=== PATIENT | female | born 1940 | race African-American/Black ===

== ENCOUNTER 2019-05-03 15:28 | Inpatient (IN) ==
--- NOTE | 2019-05-03 15:55 | DR.GENAD ---
HPI Time Seen Time Seen by Provider: 05/03/19 15:55 PCP Primary Care Physician: DR. DAMON Complaint/Symptoms Chief Complaint:: DAUGHTER STATES THAT PATIENT HAS ALZHEIMERS AND SOMTIMES DOESN'T EAT WELL BUT NORMALLY DRINKS PRETTY GOOD. STATES TODAY PATIENT HASN'T ATE NOR HAS SHE REALLY DRUNK ANYTHING. Source History Provided: Family Member Mode of Arrival Mode of Arrival: EMS Timing Onset of Chief Complaint: 05/03/19 PMH PMH Past Medical History: Yes Past Medical History: Alzheimers, Dementia, Diabetes, Dyslipidemia, Hypertension and [place] Past Medical History Comment: UPPER GI BLEED Past Surgical History: Yes Surgical History: Angioplasty/Stents Family History History of Family Medical Conditions: Yes Family Medical History: Diabetes Mellitus and Hypertension Social History Does any household member use tobacco: No Alcohol Use: None Do you use any recreational Drugs:: No Lives With: Family Lives Where: Home infectious screening In the last 2 months have you had wt loss of >10#?: NO Have you had fever, night sweats or hemotysis?: No Have you traveled outside the country in the last 6 months?: No Isolation: Standard PE Vital Signs Vitals: Temperature 98.0 F Pulse Rate 76 Respiratory Rate 16 Blood Pressure [Left Arm] 174/86 Blood Pressure 114/61 O2 Sat by Pulse Oximetry 100 ROR Labs Reviewed Result Diagrams: 05/03/19 17:30 05/03/19 17:30 Laboratory: 05/03/19 16:43 Foot - Right Gram Stain - Final WBC 11.8 X10^3/uL (3.6-10.0) H 05/03/19 17:30 RBC 4.03 X10^6/uL (3.5-5.4) 05/03/19 17:30 Hgb 11.2 g/dL (12.0-16.0) L 05/03/19 17:30 Hct 35.6 % (36.0-47.0) L 05/03/19 17:30 MCV 88.2 fL (80.0-100.0) 05/03/19 17:30 MCH 27.8 pg (27.0-34.0) 05/03/19 17:30 MCHC 31.5 g/dL (33.0-35.0) L 05/03/19 17:30 RDW 15.1 % (11.6-16.5) 05/03/19 17:30 Plt Count 254 X10^3/uL (150.0-450.0) 05/03/19 17:30 MPV 10.4 fL (7.4-11.0) 05/03/19 17:30 Neut % (Auto) 84.8 % (42.0-75.0) H 05/03/19 17:30 Lymph % (Auto) 8.7 % (21.0-51.0) L 05/03/19 17:30 [place] % (Auto) 6.0 % (0.0-13.0) 05/03/19 17:30 Eos % (Auto) 0.2 % (0.9-2.9) L 05/03/19 17:30 Baso % (Auto) 0.3 % (0.2-1.0) 05/03/19 17:30 Neut # (Auto) 10.0 x10^3/uL (2.2-4.8) H 05/03/19 17:30 Lymph # (Auto) 1.0 X10^3/uL (1.3-2.9) L 05/03/19 17:30 [place] # (Auto) 0.7 x10^3/uL (0.3-0.8) 05/03/19 17:30 Eos # (Auto) 0.0 x10^3/uL (0.0-0.2) 05/03/19 17:30 Baso # (Auto) 0.0 X10^3/uL (0.0-0.1) 05/03/19 17:30 Absolute Nucleated RBC 0.0 /100WBC 05/03/19 17:30 ESR 107 MM/HOUR (0-20) H 05/03/19 17:30 Sodium 151 mmol/L (136-145) H* 05/03/19 17:30 Corrected Sodium 154 mmol/L (136-145) H 05/03/19 17:30 Potassium 5.6 mmol/L (3.5-5.1) H 05/03/19 17:30 Chloride 112 mmol/L (98-107) H 05/03/19 17:30 Carbon Dioxide 29.8 mmol/L (21-32) 05/03/19 17:30 BUN 146 mg/dL (7-18) H 05/03/19 17:30 Creatinine 3.86 mg/dL (0.55-1.02) H 05/03/19 17:30 Est GFR (MDRD) Af Amer 15 (>60) L 05/03/19 17:30 Est GFR (MDRD) Non-Af 12 (>60) L 05/03/19 17:30 Glucose 232 mg/dL (65-99) H 05/03/19 17:30 Lactic Acid 2.1 mmol/L (0.4-2.0) H 05/03/19 17:30 Calcium 9.2 mg/dL (8.5-10.1) 05/03/19 17:30 Corrected Calcium 10.2 mg/dL (8.5-10.1) H 05/03/19 17:30 Total Bilirubin 0.30 mg/dL (0.2-1.0) 05/03/19 17:30 AST 92 Units/L (15-37) H 05/03/19 17:30 ALT 153 Units/L (12-78) H 05/03/19 17:30 Alkaline Phosphatase 78 Units/L (46-116) 05/03/19 17:30 Ammonia < 10 umol/L (11-32) L 05/03/19 17:30 Creatine Kinase 250 Units/L (26-192) H 05/03/19 17:30 CK-MB (CK-2) 1.0 ng/mL (0-4.0) 05/03/19 17:30 CK/CKMB % Calc 0.4 % (<4) 05/03/19 17:30 Troponin I < 0.02 ng/mL (0-1.5) 05/03/19 17:30 C-Reactive Protein 63.20 mg/L (0-3.0) H 05/03/19 17:30 Total Protein 8.7 g/dL (6.4-8.2) H 05/03/19 17:30 Albumin 2.8 g/dL (3.4-5.0) L 05/03/19 17:30 Globulin 5.9 g/dL (2.5-4.5) H 05/03/19 17:30 Albumin/Globulin Ratio 0.5 Ratio (1.1-2.1) L 05/03/19 17:30 Specimen Type Catherized urine 05/03/19 18:07 Urine Color Yellow (YELLOW) 05/03/19 18:07 Urine Appearance Cloudy (CLEAR) 05/03/19 18:07 Urine pH 5.0 (5.0 - 8.0) 05/03/19 18:07 Ur Specific [place] 1.020 (1.000-1.030) 05/03/19 18:07 Urine Protein 2+ (NEGATIVE) 05/03/19 18:07 Urine Glucose (UA) Negative (NEGATIVE) 05/03/19 18:07 Urine Ketones Negative (NEGATIVE) 05/03/19 18:07 Urine Occult Blood 1+ (NEGATIVE) 05/03/19 18:07 Urine Nitrite Negative (NEGATIVE) 05/03/19 18:07 Urine Bilirubin Negative (NEGATIVE) 05/03/19 18:07 Urine Urobilinogen Normal (NORMAL) 05/03/19 18:07 Ur Leukocyte Esterase Negative (NEGATIVE) 05/03/19 18:07 Urine RBC 0-2 /HPF (0-3) 05/03/19 18:07 Urine WBC None seen /HPF (0-5) 05/03/19 18:07 Ur Squamous Epith Cells Few /HPF (NEGATIVE) 05/03/19 18:07 Amorphous Sediment 2+ /HPF (NEGATIVE) 05/03/19 18:07 Urine Bacteria Negative /HPF (NEGATIVE) 05/03/19 18:07 Granular Casts Few /LPF (NEGATIVE) 05/03/19 18:07 Ur Culture Indicated? No/not indicated 05/03/19 18:07 Opioid Opioid Risk Tool Age (Jermaine box if 16-45): No History of Preadolescent Sexual Abuse: No Total: 0 Total Score Risk Category: Low Risk Copyright: Balta FREED predicting aberrant behaviors
--- NOTE | 2019-05-03 17:34 | CT ---
HISTORY: Altered mental status, dementia Study: CT brain without contrast Comparison: None Technique: Multiple axial images of the brain were obtained from the skull base to the vertex without administration of IV contrast. Findings: No acute intraparenchymal hemorrhage or mass can be identified. No extra-axial fluid collections are seen. No alteration in the attenuation of the brain parenchyma can be identified to suggest acute or subacute ischemic change. The ventricles, sulci, and cisterns demonstrate an appearance consistent with a [id number] degree of generalized atrophy. Patchy and confluent areas of decreased attenuation within the periventricular, subcortical, and subinsular white matter suggest changes of chronic small vessel ischemic disease. Suspected remote infarcts are seen involving the left parietal and occipital lobes. If symptoms or clinical concern persist recommend continued follow-up for further evaluation. IMPRESSION: No acute intracranial process can be identified. Moderate generalized atrophy with findings consistent with changes of chronic small vessel ischemic disease. Suspected remote infarcts as noted above. Reported By:
[2019-05-03 17:40] LABS: BASOPHILS % (AUTO) 0.3 % (0.2-1.0); EOSINOPHILS % (AUTO) 0.2 % (0.9-2.9); HEMATOCRIT 35.6 % (36.0-47.0); HEMOGLOBIN 11.2 g/dL (12.0-16.0); LYMPHOCYTES % (AUTO) 8.7 % (21.0-51.0); MEAN CORPUSCULAR HEMOGLOBIN 27.8 pg (27.0-34.0); MEAN CORPUSCULAR HGB CONC 31.5 g/dL (33.0-35.0); MEAN CORPUSCULAR VOLUME 88.2 fL (80.0-100.0); MEAN PLATELET VOLUME 10.4 fL (7.4-11.0); MONOCYTES # (AUTO) 0.7 x10^3/uL (0.3-0.8); NEUTROPHILS % (AUTO) 84.8 % (42.0-75.0); PLATELET COUNT 254 X10^3/uL (150.0-450.0); RED BLOOD COUNT 4.03 X10^6/uL (3.5-5.4); RED CELL DISTRIBUTION WIDTH 15.1 % (11.6-16.5); WHITE BLOOD COUNT 11.8 X10^3/uL (3.6-10.0)
--- NOTE | 2019-05-03 17:45 | RAD ---
HISTORY: Altered mental status Study: Single-view of the chest Comparison: None Findings: The trachea is midline. The cardiac silhouette is unremarkable. The lungs are relatively without focal infiltrate or effusion. IMPRESSION: 1. No acute cardiopulmonary disease. Reported By:
[2019-05-03 17:50] LABS: AMMONIA < 10 umol/L (11-32)
[2019-05-03 17:57] LABS: LACTIC ACID 2.1 mmol/L (0.4-2.0)
[2019-05-03 18:03] LABS: ALANINE AMINOTRANSFERASE 153 Units/L (12-78); ALBUMIN 2.8 g/dL (3.4-5.0); ALKALINE PHOSPHATASE 78 Units/L (46-116); ASPARTATE AMINO TRANSFERASE 92 Units/L (15-37); BLOOD UREA NITROGEN 146 mg/dL (7-18); CALCIUM 9.2 mg/dL (8.5-10.1); CARBON DIOXIDE 29.8 mmol/L (21-32); CHLORIDE 112 mmol/L (98-107); CKMB % 0.4 % (<4); COR CA(FOR HYPOALB) 10.2 mg/dL (8.5-10.1); COR NA(FOR HYPERGLY) 154 mmol/L (136-145); CREATINE KINASE 250 Units/L (26-192); CREATININE 3.86 mg/dL (0.55-1.02); TOTAL PROTEIN 8.7 g/dL (6.4-8.2); TROPONIN I < 0.02 ng/mL (0-1.5); eGFR NON BLACK RACES 12 (>60)
[2019-05-03 18:04] LABS: SODIUM 151 mmol/L (136-145)
[2019-05-03 18:20] LABS: ERYTHROCYTE SEDIMENTATION RATE 107 MM/HOUR (0-20)
[2019-05-03 18:35] LABS: BILIRUBIN,URINE NEGATIVE (NEGATIVE); BLOOD/HEMOGLOBIN,URINE 1+ (NEGATIVE); GLUCOSE, URINE NEGATIVE (NEGATIVE); KETONES,URINE NEGATIVE (NEGATIVE); LEUKOCYTE ESTERASE ,URINE NEGATIVE (NEGATIVE); NITRITES,URINE NEGATIVE (NEGATIVE); PROTEIN,URINE 2+ (NEGATIVE); UROBILINOGEN,URINE NORMAL (NORMAL)
[2019-05-03 18:38] LABS: APPEARANCE,URINE CLOUDY (CLEAR); COLOR,URINE YELLOW (YELLOW); RBC,URINE 0-2 /HPF (0-3); SQUAMOUS EPITHELIAL CELL,UR FEW /HPF (NEGATIVE)
[2019-05-03 18:39] LABS: AMORPHOUS SEDIMENT,UR 2+ /HPF (NEGATIVE); BACTERIA,URINE NEGATIVE /HPF (NEGATIVE); GRANULAR CASTS,URINE FEW /LPF (NEGATIVE)
[2019-05-03] MEDS ORDERED: NS 1/2 1000 ML IV 1,000 ML IV ONE (19:32)
[2019-05-03] MEDS: ROCEPHIN VIAL 1 GRAM 1 G in NS 100 ML IV + SPIKE MINIBAG* 100 ML IV SCH (19:32)
[2019-05-03] MEDS: NS 1/2 1000 ML IV 1,000 ML IV SCH (19:32)
[2019-05-03] MEDS ORDERED: ROCEPHIN VIAL 1 GRAM ONE (19:33)
[2019-05-03] MEDS ORDERED: NS 100 ML IV + SPIKE MINIBAG* 100 ML IV ONE (19:34)
--- NOTE | 2019-05-03 19:47 | RAD ---
Abdomen, one view Indication: Abdominal pain Comparison: None Findings: The visualized bowel gas pattern is nonspecific but nonobstructive. No free air or pneumatosis is identified. No pathologic calcifications seen. Imaged osseous structures are grossly intact. Impression: Nonspecific but nonobstructive bowel gas pattern. Reported By:
--- NOTE | 2019-05-03 19:51 | RAD ---
Right foot, three views Indication: Ulcer, gangrene Comparison: None Findings: There appears to be an ulcer of the distal 3rd digit with underlying osteolysis of the distal tuft, compatible with osteomyelitis. There is no significant soft tissue gas or radiopaque foreign body. No acute fracture or malalignment is identified. Degenerative changes of the midfoot, 1st MTP joint and mild hindfoot enthesopathy noted. Impression: Ulceration of the distal 3rd digit with underlying osteolysis of the 3rd digit distal tuft, compatible with osteomyelitis. Consider contrast enhanced MRI of the forefoot only for further evaluation. This can be done on a nonemergent basis. Reported By:
[2019-05-03 23:57] LABS: CKMB % 0.8 % (<4); CREATINE KINASE 212 Units/L (26-192); CREATINE KINASE MB 1.6 ng/mL (0-4.0); TROPONIN I < 0.02 ng/mL (0-1.5)
[2019-05-04 00:18] VITALS: BMI 16.1
[2019-05-04 05:18] LABS: BASOPHILS % (AUTO) 0.3 % (0.2-1.0); EOSINOPHILS % (AUTO) 0.4 % (0.9-2.9); HEMATOCRIT 27.2 % (36.0-47.0); LYMPHOCYTES # (AUTO) 1.7 X10^3/uL (1.3-2.9); LYMPHOCYTES % (AUTO) 15.3 % (21.0-51.0); MEAN CORPUSCULAR HEMOGLOBIN 28.5 pg (27.0-34.0); MEAN CORPUSCULAR HGB CONC 32.6 g/dL (33.0-35.0); MEAN CORPUSCULAR VOLUME 87.4 fL (80.0-100.0); MEAN PLATELET VOLUME 10.5 fL (7.4-11.0); MONOCYTES # (AUTO) 0.8 x10^3/uL (0.3-0.8); MONOCYTES % (AUTO) 7.8 % (0.0-13.0); NEUTROPHILS # (AUTO) 8.2 x10^3/uL (2.2-4.8); NEUTROPHILS % (AUTO) 76.2 % (42.0-75.0); PLATELET COUNT 204 X10^3/uL (150.0-450.0); RED BLOOD COUNT 3.11 X10^6/uL (3.5-5.4); RED CELL DISTRIBUTION WIDTH 14.3 % (11.6-16.5); WHITE BLOOD COUNT 10.8 X10^3/uL (3.6-10.0)
[2019-05-04 05:19] LABS: HEMOGLOBIN 8.9 g/dL (12.0-16.0)
[2019-05-04 05:43] LABS: ALANINE AMINOTRANSFERASE 106 Units/L (12-78); ALBUMIN 2.3 g/dL (3.4-5.0); ALKALINE PHOSPHATASE 62 Units/L (46-116); ASPARTATE AMINO TRANSFERASE 53 Units/L (15-37); BLOOD UREA NITROGEN 143 mg/dL (7-18); CALCIUM 8.4 mg/dL (8.5-10.1); CARBON DIOXIDE 28.8 mmol/L (21-32); CHOL/HDL RATIO 5.5 (0.0-5.0); CHOLESTEROL 149 mg/dL (0-200); CKMB % 0.6 % (<4); COR CA(FOR HYPOALB) 9.8 mg/dL (8.5-10.1); COR NA(FOR HYPERGLY) 153 mmol/L (136-145); CREATINE KINASE 193 Units/L (26-192); CREATINE KINASE MB 1.2 ng/mL (0-4.0); CREATININE 3.36 mg/dL (0.55-1.02); HDL CHOLESTEROL 27 mg/dL (40-60); MAGNESIUM 3.3 mg/dL (1.7-2.9); TOTAL PROTEIN 7.1 g/dL (6.4-8.2); TRIGLYCERIDES 171 mg/dL (0-150); TROPONIN I < 0.02 ng/mL (0-1.5); eGFR NON BLACK RACES 14 (>60)
[2019-05-04 05:46] LABS: CHLORIDE 115 mmol/L (98-107); SODIUM 152 mmol/L (136-145)
[2019-05-04] MEDS ORDERED: NS 1/2 1000 ML IV 1,000 ML IV ONE ×2 (05:48→21:03)
[2019-05-04] MEDS: NS 1/2 1000 ML IV 1,000 ML IV SCH ×5 (06:02→21:14)
[2019-05-04] MEDS: ROCEPHIN VIAL 1 GRAM 1 G in NS 100 ML IV + SPIKE MINIBAG* 100 ML IV SCH (09:05)
[2019-05-04] MEDS ORDERED: VANCOMYCIN HCL 750 MG in NS 250 ML IV 250 ML IV NR (10:00)
[2019-05-04] MEDS ORDERED: PHARMACY CONSULT - VANCOMYCIN XX SCH (10:00)
[2019-05-04] MEDS ORDERED: NS IRRIGATION 500 ML IR ONE (10:07)
--- NOTE | 2019-05-04 11:06 | DR.H&P ---
H&P - History & Physical for Day of: H&P Date: 05/03/19 - Chief Complaint Chief Complaint: DECREASED APPETITE, RIGHT FOOT WOUND - History of Present Illness History of Present Illness: IS A 78 YEAR OLD PATIENT OF OURS. SHE PRESENTED TO THE ER VIA EMS WITH FAMILY REPORTING DECREASED APPETITE AND A RIGHT FOOT WOUND. UNSTAGEABLE WOUND NOTED TO THE RIGHT OUTER ANKLE. WOUND IS APPROXIMATELY THE SIZE OF A QUARTER. SLOUGH COVERING WOUND BED. PATIENT MOANS OUT IN PAIN WITH MOVEMENT OF HER RIGHT FOOT OR LEG. SHE HAS A HISTORY OF ANZEIMERS, DENENTIA, DM, DYSLIPIDEMIA, HTN, AND NH. ON ARRIVAL TO THE ER, VITALS WERE 98.0-80-20-99%-131/62. LABS WERE OBTAINED. ABNORMAL LAB VALUES INCLUDE THE FOLLOWING: WBC 11.8, HGB 11.2, HCT 35.6, SODIUM 151, POTASSIUM 5.6, CHLORIDE 112, BUN 146, CREATININE 3.86, GLUCOSE 232, LACTIC ACID 2.1, AST 92, ALT 153, CRP 63.20, TOTAL PROTEIN 8.7, ALBUMIN 2.8, GLOBULIN 5.9. CREATINE KINASE 250, CARDIAC ENZYMES ARE OTHERWISE UNREMARKABLE. URINALYSIS IS UNREMARKABLE. AN EKG WAS OBTAINED AND REVEALED: SINUS RHYTH WITH MULTIPLE PVC, HR 81. A BRAIN CT WAS OBTAINED AND REVEALED: No acute intracranial process can be identified. Moderate generalized atrophy with findings consistent with changes of chronic small vessel ischemic disease. Suspected remote infarcts as noted above. A RIGHT FOOT XRAY REVEALED: Ulceration of the distal 3rd digit with underlying osteolysis of the 3rd digit distal tuft, compatible with osteomyelitis. Consider contrast enhanced MRI of the forefoot only for further evaluation. This can be done on a nonemergent basis. CHEST XRAY REVEALED: NO ACUTE CARDIOPULMONARY DISEASE. KUB REVEALED: Nonspecific but nonobstructive bowel gas pattern. SHE WAS ADMITTED FOR FURTHER EVALUATION AND TREATMENT OF ACUTE RENAL FAILURE, SEVERE DEHYDRATION, HYPERNATREMIA, HYPERKALEMIA, AND OSTEOMYELITIS OF THE RIGHT FOOT. SHE WAS STARTED ON 1/2NS AT 125ML/HR, ROCEPHIN 1G IV DAILY, AND HUMULIN R SLIDING SCALE. WE SPOKE WITH CONCERNING THE OSTEOMYELITIS. HE WILL SEE PATIENT IN THE MORNING. OTHERWISE, WE WILL FOLLOW UP WITH AM LABS AND CONTINUE TO MONITOR. - Past Medical History Past Medical History: NH, Hypertension, Dyslipidemia, Diabetes, Alzheimers, Dementia - Past Surgical History Surgical History: Angioplasty/Stents - Family History Family Medical History: Diabetes Mellitus, Coronary Artery Disease, Hypertension - Social History Does patient currently use any type of tobacco product: No Have you used tobacco products in the last 12 months: No Does any household member use tobacco: No Alcohol Use: None Drug Use: None - Medications Home Medications: latex Allergy (Verified 05/03/19 15:50) CONTINUE taking the following medications insulin glargine [Lantus U-100 Insulin] 10 unit SUBCUT DAILY PRN 05/03/19 [History] lisinopril-hydrochlorothiazide 1 tab PO DAILY 05/03/19 [History] simvastatin 20 mg PO QHS 05/03/19 [History] - Review of Systems Constitutional: See HPI, Weakness Eyes: No Symptoms Reported ENT: No Symptoms Reported Respiratory: No Symptoms Reported Cardiovascular: No Symptoms Reported Gastrointestinal: No Symptoms Reported Genitourinary: No Symptoms Reported Musculoskeletal: See HPI, Foot Pain (RIGHT FOOT PAIN ) Skin: Wound (UNSTAGABLE RIGHT FOOT WOUND ) Neurological: See HPI, Weakness - Physical Exam Vital Signs: Temperature 97.0 F Pulse Rate 56 Respiratory Rate 14 Blood Pressure [Left Arm] 144/65 Blood Pressure 116/60 O2 Sat by Pulse Oximetry 100 Oriented: Unable to test Eyes: Normal Ear: Normal Nose: Normal Throat: Normal Respiratory: Diminished Throughout Cardiovascular: Normal. negative: S3, S4, Murmur : Normal Auscultation: Bowel Sounds: Normal Palpation: Normal Tenderness: Normal Skin: Wound (RIGHT FOOT WOUND ) Musculoskeletal: Right, Foot, Tender Psychiatric: Other Mood Description: Calm, Flat Affect: Flat Speech Pattern: Inappropriate - Review Patient was examined?: Yes - Allergies Allergies/Adverse Reactions: Allergies Allergy/AdvReac Type Severity Reaction Status Date / Time latex Allergy Verified 05/03/19 15:50
[2019-05-04] MEDS: HumuLIN R SUBCUT PRN ×3 (12:15→20:29)
[2019-05-04] MEDS ORDERED: NS 1000 ML 2,000 ML IV ONE (14:18)
[2019-05-04] MEDS: LOVENOX INJ 40 MG SYR SC SCH (14:43)
[2019-05-05] MEDS: NS 1/2 1000 ML IV 1,000 ML IV SCH ×4 (04:41→20:50)
[2019-05-05] MEDS ORDERED: NS 1/2 1000 ML IV 1,000 ML IV ONE ×2 (05:22→16:41)
[2019-05-05 05:24] LABS: BASOPHILS % (AUTO) 0.4 % (0.2-1.0); EOSINOPHILS # (AUTO) 0.3 x10^3/uL (0.0-0.2); EOSINOPHILS % (AUTO) 2.5 % (0.9-2.9); HEMOGLOBIN 8.3 g/dL (12.0-16.0); LYMPHOCYTES # (AUTO) 1.6 X10^3/uL (1.3-2.9); LYMPHOCYTES % (AUTO) 13.9 % (21.0-51.0); MEAN CORPUSCULAR VOLUME 87.7 fL (80.0-100.0); MEAN PLATELET VOLUME 10.9 fL (7.4-11.0); MONOCYTES # (AUTO) 0.8 x10^3/uL (0.3-0.8); MONOCYTES % (AUTO) 6.6 % (0.0-13.0); NEUTROPHILS # (AUTO) 8.9 x10^3/uL (2.2-4.8); NEUTROPHILS % (AUTO) 76.6 % (42.0-75.0); PLATELET COUNT 171 X10^3/uL (150.0-450.0); RED BLOOD COUNT 2.96 X10^6/uL (3.5-5.4); RED CELL DISTRIBUTION WIDTH 14.5 % (11.6-16.5); WHITE BLOOD COUNT 11.6 X10^3/uL (3.6-10.0)
[2019-05-05 05:46] LABS: ALANINE AMINOTRANSFERASE 102 Units/L (12-78); ALBUMIN 1.8 g/dL (3.4-5.0); ALKALINE PHOSPHATASE 57 Units/L (46-116); ASPARTATE AMINO TRANSFERASE 70 Units/L (15-37); BLOOD UREA NITROGEN 98 mg/dL (7-18); CALCIUM 7.6 mg/dL (8.5-10.1); CARBON DIOXIDE 24.5 mmol/L (21-32); COR CA(FOR HYPOALB) 9.4 mg/dL (8.5-10.1); CREATININE 1.96 mg/dL (0.55-1.02); SODIUM 148 mmol/L (136-145); TOTAL PROTEIN 5.8 g/dL (6.4-8.2); eGFR NON BLACK RACES 26 (>60)
[2019-05-05 05:55] LABS: CHLORIDE 115 mmol/L (98-107)
[2019-05-05] MEDS ORDERED: PHARMACY COMMENT IV NR (08:00)
[2019-05-05] MEDS: LOVENOX INJ 40 MG SYR SC SCH (08:10)
[2019-05-05] MEDS: ROCEPHIN VIAL 1 GRAM 1 G in NS 100 ML IV + SPIKE MINIBAG* 100 ML IV SCH (08:10)
[2019-05-05 08:48] LABS: VANCOMYCIN,TROUGH 7.7 ug/mL (15-20)
[2019-05-05] MEDS: VANCOMYCIN HCL 750 MG in D5W 250 ML IV 250 ML IV SCH ×2 (11:58→20:47)
--- NOTE | 2019-05-05 17:28 | PCM.PROG ---
Progress Note - Progress Note for Day of Date of Exam: 05/04/19 - Subjective Subjective: WAS ADMITTED FOR TREATMENT OF ACUTE RENAL FAILURE, SEVERE DEHYDRATION, HYPERNATREMIA, HYPERKALEMIA, AND OSTEOMYELITIS OF THE RIGHT FOOT. TODAY, SHE IS LYING IN BED WITH EYES CLOSED ON MORNING ROUNDS. SHE OPENS EYES TO VERBAL STIMULI, BUT DOES NOT VERBALLY RESPOND. ON EXAMINATION, HEART IS REGULAR IN RATE AND RHYTHM. BILATERAL LUNGS ARE NOTED WITH DIMINISHED LUNG SOUNDS THROUGHOUT. ABDOMEN IS FLAT, SOFT, AND NON-TENDER. HYPOACTIVE BOWEL SOUNDS ARE NOTED. LOWER EXTREMITIES ARE CONTRACTED. THERE IS AN UNSTAGEABLE WOUND NOTED TO THE RIGHT OUTER ANKLE. WOUND IS APPROXIMATELY THE SIZE OF A QUARTER. SLOUGH COVERING WOUND BED. THE 3RD TO IS ISCHEMIC. DISTAL PEDAL PULSES ARE NOTE PA LPABLE. HER VITALS THIS MORNING ARE: 97.2-63-15-100%-118/58. LABS WERE OBTAINED. ABNORMAL LAB VALUES INCLUDE THE FOLLOWING: WBC 10.8, RBC 3.11, HGB 8.9, HCT 27.2, SODIUM 152, CHLORIDE 115, BUN 143, CREATININE 3.36, GLUCOSE 151, CALCIUM 8.4, MAGNESIUM 3.3, ALT 106, CREATINE KINASE 193, ALBUMIN 2.3. WOUND AND BLOOD CULTURES ARE PENDING. SHE IS CURRENTLY RECEIVING 1/2NS AT 125ML/HR, IV CIPRO, AND HUMULIN R SLIDING SCALE. WE WILL ADD VANCOMYCIN TODAY. WE WILL OBTAIN AN ECHO, BNP, STOOL FOR OCCULT BLOOD. WE SPOKE WITH . HE DOES NOT FEEL THOUGH THE WOUND REQUIRES SURGICAL INTERVENTION AT THIS TIME. HE RECOMMENDS CONTINUING ANTIBIOTICS AND WOUND CARE. WE ARE IN AGREEMENT WITH PLAN. OTHERWISE, WE WILL FOLLOW UP WITH AM LABS AND CONTINUE TO MONITOR. - Past Medical Family Social History Past Med/Fam/Surg Hx: No changes since H&P Allergies: Allergies latex Allergy (Verified 05/03/19 15:50) - Review of Systems ROS: No change since H&P - Vital Signs and I&O's Vital Signs: Temperature 98.0 F Pulse Rate 64 Respiratory Rate 16 Blood Pressure [Left Arm] 144/65 Blood Pressure 166/80 O2 Sat by Pulse Oximetry 100 Intake and Output: Intake & Output 05/03/19 05/04/19 05/05/19 05/06/19 11:59 11:59 11:59 11:59 Intake Total 1179 / 1179 6938 / 6938 Output Total 200 / 200 1300 / 1300 Balance 979 / 979 5638 / 5638 - Physical Exam Oriented: Unable to test Eyes: Normal Ear: Normal Nose: Normal Throat: Normal Cardiovascular: Normal. negative: S3, S4, Murmur : Normal Auscultation: Bowel Sounds: Normal Tenderness: Normal Skin: Wound (RIGHT FOOT WOUND ) Musculoskeletal: Right, Foot, Tender Psychiatric: Other Mood Description: Calm, Flat Affect: Flat Speech Pattern: Unclear, Aphasic - Laboratory and Diagnostics Result Diagrams: 05/05/19 04:35 05/05/19 08:16 Labs: 05/03/19 17:25 Blood Blood Culture - Preliminary 05/03/19 17:30 Blood Blood Culture - Preliminary 05/03/19 20:00 Ankle - Right Gram Stain - Final 05/03/19 20:00 Ankle - Right Wound Culture - Preliminary Enterococcus Faecalis 05/03/19 16:43 Foot - Right Gram Stain - Final 05/03/19 16:43 Foot - Right Wound Culture - Preliminary Enterococcus Faecalis Laboratory WBC 11.6 X10^3/uL (3.6-10.0) H 05/05/19 04:35 RBC 2.96 X10^6/uL (3.5-5.4) L 05/05/19 04:35 Hgb 8.3 g/dL (12.0-16.0) L 05/05/19 04:35 Hct 26.0 % (36.0-47.0) L 05/05/19 04:35 MCV 87.7 fL (80.0-100.0) 05/05/19 04:35 MCH 28.0 pg (27.0-34.0) 05/05/19 04:35 MCHC 32.0 g/dL (33.0-35.0) L 05/05/19 04:35 RDW 14.5 % (11.6-16.5) 05/05/19 04:35 Plt Count 171 X10^3/uL (150.0-450.0) 05/05/19 04:35 MPV 10.9 fL (7.4-11.0) 05/05/19 04:35 Neut % (Auto) 76.6 % (42.0-75.0) H 05/05/19 04:35 Lymph % (Auto) 13.9 % (21.0-51.0) L 05/05/19 04:35 [place] % (Auto) 6.6 % (0.0-13.0) 05/05/19 04:35 Eos % (Auto) 2.5 % (0.9-2.9) 05/05/19 04:35 Baso % (Auto) 0.4 % (0.2-1.0) 05/05/19 04:35 Neut # (Auto) 8.9 x10^3/uL (2.2-4.8) H 05/05/19 04:35 Lymph # (Auto) 1.6 X10^3/uL (1.3-2.9) 05/05/19 04:35 [place] # (Auto) 0.8 x10^3/uL (0.3-0.8) 05/05/19 04:35 Eos # (Auto) 0.3 x10^3/uL (0.0-0.2) H 05/05/19 04:35 Baso # (Auto) 0.0 X10^3/uL (0.0-0.1) 05/05/19 04:35 Absolute Nucleated RBC 0.0 /100WBC 05/05/19 04:35 ESR 107 MM/HOUR (0-20) H 05/03/19 17:30 Sodium 148 mmol/L (136-145) H 05/05/19 04:35 Corrected Sodium TNP 05/05/19 04:35 Potassium 4.4 mmol/L (3.5-5.1) 05/05/19 04:35 Chloride 115 mmol/L (98-107) H* 05/05/19 04:35 Carbon Dioxide 24.5 mmol/L (21-32) 05/05/19 04:35 BUN 98 mg/dL (7-18) H 05/05/19 04:35 Creatinine 2.00 mg/dL (0.55-1.02) H 05/05/19 08:16 Est GFR (MDRD) Af Amer 32 (>60) L 05/05/19 04:35 Est GFR (MDRD) Non-Af 26 (>60) L 05/05/19 04:35 Glucose 105 mg/dL (65-99) H 05/05/19 04:35 POC Glucose (mg/dL) 137 mg/dL (65-99) H 05/05/19 12:03 Lactic Acid 2.1 mmol/L (0.4-2.0) H 05/03/19 17:30 Calcium 7.6 mg/dL (8.5-10.1) L 05/05/19 04:35 Corrected Calcium 9.4 mg/dL (8.5-10.1) 05/05/19 04:35 Magnesium 3.3 mg/dL (1.7-2.9) H 05/04/19 05:03 Total Bilirubin 0.10 mg/dL (0.2-1.0) L 05/05/19 04:35 AST 70 Units/L (15-37) H 05/05/19 04:35 ALT 102 Units/L (12-78) H 05/05/19 04:35 Alkaline Phosphatase 57 Units/L (46-116) 05/05/19 04:35 Ammonia < 10 umol/L (11-32) L 05/03/19 17:30 Creatine Kinase 193 Units/L (26-192) H 05/04/19 05:03 CK-MB (CK-2) 1.2 ng/mL (0-4.0) 05/04/19 05:03 CK/CKMB % Calc 0.6 % (<4) 05/04/19 05:03 Troponin I < 0.02 ng/mL (0-1.5) 05/04/19 05:03 C-Reactive Protein 63.20 mg/L (0-3.0) H 05/03/19 17:30 B-Natriuretic Peptide 23.7 pg/mL (0-79) 05/04/19 05:03 Total Protein 5.8 g/dL (6.4-8.2) L 05/05/19 04:35 Albumin 1.8 g/dL (3.4-5.0) L 05/05/19 04:35 Globulin 4.0 g/dL (2.5-4.5) 05/05/19 04:35 Albumin/Globulin Ratio 0.5 Ratio (1.1-2.1) L 05/05/19 04:35 Triglycerides 171 mg/dL (0-150) H 05/04/19 05:03 Cholesterol 149 mg/dL (0-200) 05/04/19 05:03 LDL Cholesterol, Calc 88 mg/dL (0-100) 05/04/19 05:03 HDL Cholesterol 27 mg/dL (40-60) L 05/04/19 05:03 Cholesterol/HDL Ratio 5.5 (0.0-5.0) H 05/04/19 05:03 Specimen Type Catherized urine 05/03/19 18:07 Urine Color Yellow (YELLOW) 05/03/19 18:07 Urine Appearance Cloudy (CLEAR) 05/03/19 18:07 Urine pH 5.0 (5.0 - 8.0) 05/03/19 18:07 Ur Specific [place] 1.020 (1.000-1.030) 05/03/19 18:07 Urine Protein 2+ (NEGATIVE) 05/03/19 18:07 Urine Glucose (UA) Negative (NEGATIVE) 05/03/19 18:07 Urine Ketones Negative (NEGATIVE) 05/03/19 18:07 Urine Occult Blood 1+ (NEGATIVE) 05/03/19 18:07 Urine Nitrite Negative (NEGATIVE) 05/03/19 18:07 Urine Bilirubin Negative (NEGATIVE) 05/03/19 18:07 Urine Urobilinogen Normal (NORMAL) 05/03/19 18:07 Ur Leukocyte Esterase Negative (NEGATIVE) 05/03/19 18:07 Urine RBC 0-2 /HPF (0-3) 05/03/19 18:07 Urine WBC None seen /HPF (0-5) 05/03/19 18:07 Ur Squamous Epith Cells Few /HPF (NEGATIVE) 05/03/19 18:07 Amorphous Sediment 2+ /HPF (NEGATIVE) 05/03/19 18:07 Urine Bacteria Negative /HPF (NEGATIVE) 05/03/19 18:07 Granular Casts Few /LPF (NEGATIVE) 05/03/19 18:07 Ur Culture Indicated? No/not indicated 05/03/19 18:07 Vancomycin Trough 7.7 ug/mL (15-20) L 05/05/19 08:16
[2019-05-05] MEDS ORDERED: ZESTRIL TAB 20 MG ONE (19:27)
[2019-05-05] MEDS: ZESTRIL TAB 20 MG PO SCH (20:46)
[2019-05-05] MEDS: HumuLIN R SUBCUT PRN (21:00)
--- NOTE | 2019-05-05 21:54 | DR.UPDATE ---
H&P Update History and Physical Update: History and Physical reviewed and patient examined. Changes noted: NO Yes with the following:
[2019-05-06] MEDS ORDERED: NS 1/2 1000 ML IV 1,000 ML IV ONE ×2 (01:32→15:00)
[2019-05-06] MEDS: NS 1/2 1000 ML IV 1,000 ML IV SCH ×3 (03:09→20:00)
[2019-05-06 05:30] LABS: BASOPHILS % (AUTO) 0.4 % (0.2-1.0); EOSINOPHILS # (AUTO) 0.4 x10^3/uL (0.0-0.2); EOSINOPHILS % (AUTO) 3.7 % (0.9-2.9); HEMATOCRIT 23.9 % (36.0-47.0); LYMPHOCYTES # (AUTO) 1.5 X10^3/uL (1.3-2.9); LYMPHOCYTES % (AUTO) 16.1 % (21.0-51.0); MEAN CORPUSCULAR HEMOGLOBIN 29.1 pg (27.0-34.0); MEAN CORPUSCULAR HGB CONC 33.4 g/dL (33.0-35.0); MEAN CORPUSCULAR VOLUME 87.2 fL (80.0-100.0); MEAN PLATELET VOLUME 11.8 fL (7.4-11.0); MONOCYTES # (AUTO) 0.6 x10^3/uL (0.3-0.8); MONOCYTES % (AUTO) 6.7 % (0.0-13.0); NEUTROPHILS % (AUTO) 73.1 % (42.0-75.0); PLATELET COUNT 172 X10^3/uL (150.0-450.0); RED BLOOD COUNT 2.74 X10^6/uL (3.5-5.4); RED CELL DISTRIBUTION WIDTH 14.2 % (11.6-16.5); WHITE BLOOD COUNT 9.6 X10^3/uL (3.6-10.0)
[2019-05-06 05:54] LABS: ALANINE AMINOTRANSFERASE 81 Units/L (12-78); ALBUMIN 1.7 g/dL (3.4-5.0); ALKALINE PHOSPHATASE 55 Units/L (46-116); ASPARTATE AMINO TRANSFERASE 56 Units/L (15-37); BLOOD UREA NITROGEN 63 mg/dL (7-18); CALCIUM 7.5 mg/dL (8.5-10.1); CARBON DIOXIDE 24.4 mmol/L (21-32); CHLORIDE 110 mmol/L (98-107); COR CA(FOR HYPOALB) 9.3 mg/dL (8.5-10.1); CREATININE 1.48 mg/dL (0.55-1.02); SODIUM 141 mmol/L (136-145); TOTAL PROTEIN 5.3 g/dL (6.4-8.2); eGFR NON BLACK RACES 36 (>60)
[2019-05-06] MEDS: LOVENOX INJ 30 MG SYR SC SCH (10:01)
[2019-05-06] MEDS: VANCOMYCIN HCL 750 MG in D5W 250 ML IV 250 ML IV SCH (10:03)
[2019-05-06] MEDS: ROCEPHIN VIAL 1 GRAM 1 G in NS 100 ML IV + SPIKE MINIBAG* 100 ML IV SCH (10:04)
[2019-05-06] MEDS: ALBUMIN HUMAN 25%- 100 ML 100 ML IV SCH (14:00)
[2019-05-06] MEDS ORDERED: MILK OF MAGNESIA PO PRN (16:43)
[2019-05-06] MEDS ORDERED: ZESTRIL TAB 20 MG ONE (20:09)
[2019-05-06] MEDS ORDERED: PHARMACY COMMENT IV NR (20:30)
[2019-05-06] MEDS: ZESTRIL TAB 20 MG PO SCH (21:12)
[2019-05-06 21:21] LABS: CREATININE 1.53 mg/dL (0.55-1.02)
[2019-05-06 21:23] LABS: VANCOMYCIN,TROUGH 20.4 ug/mL (15-20)
--- NOTE | 2019-05-06 22:48 | PCM.PROG ---
Progress Note - Progress Note for Day of Date of Exam: 05/05/19 - Subjective Subjective: WAS ADMITTED FOR TREATMENT OF ACUTE RENAL FAILURE, SEVERE DEHYDRATION, HYPERNATREMIA, HYPERKALEMIA, AND OSTEOMYELITIS OF THE RIGHT FOOT. TODAY, SHE IS SLIGHTLY MORE ALERT, BUT DOES NOT VERBALLY RESPOND. ON EXAMINATION, HEART IS REGULAR IN RATE AND RHYTHM. BILATERAL LUNGS ARE NOTED WITH DIMINISHED LUNG SOUNDS THROUGHOUT. ABDOMEN IS FLAT, SOFT, AND NON-TENDER. HYPOACTIVE BOWEL SOUNDS ARE NOTED. LOWER EXTREMITIES ARE CONTRACTED. THERE IS A WOUND NOTED TO THE RIGHT OUTER ANKLE. WOUND IS APPROXIMATELY THE SIZE OF A QUARTER. SLOUGH COVERING WOUND BED. THE 3RD TO IS ISCHEMIC. DISTAL PEDAL PULSES ARE NOT PALPABLE. HER VITALS THIS MORNING ARE: 97.8-66-17-100%-150/67. LABS WERE OBTAINED. ABNORMAL LAB VALUES INCLUDE THE FOLLOWING: WBC 11.6, RBC 2.96, HGB 8.3, HCT 26.0, SODIUM 148, CHLORIDE 115, BUN 98, CREATININE 1.96, GLUCOSE 105, CALCIUM 7.6, TOTAL BILI 0.10, AST 70, WILFREDO 102, TOTAL PROTEIN 5.8, ALBUMIN 1.8. WOUND AND BLOOD CULTURES ARE PENDING. SHE IS CURRENTLY RECEIVING 1/2NS AT 125ML/HR, IV CIPRO, IV VANCOMYCIN, AND HUMULIN R SLIDING SCALE. WE SPOKE WITH . HE DOES NOT FEEL THOUGH THE WOUND REQUIRES SURGICAL INTERVENTION AT THIS TIME. HE RECOMMENDS CONTINUING ANTIBIOTICS AND WOUND CARE. WE WILL CONTINUE WITH CURRENT PLAN OF CARE AT THIS TIME. OTHERWISE, WE WILL FOLLOW UP WITH AM LABS AND CONTINUE TO MONITOR. - Past Medical Family Social History Past Med/Fam/Surg Hx: No changes since H&P Allergies: Allergies latex Allergy (Verified 05/03/19 15:50) - Review of Systems ROS: No change since H&P - Vital Signs and I&O's Vital Signs: Temperature 98.5 F Pulse Rate 71 Respiratory Rate 24 Blood Pressure [Left Arm] 144/65 Blood Pressure 171/75 O2 Sat by Pulse Oximetry 100 Intake and Output: Intake & Output 05/04/19 05/05/19 05/06/19 05/07/19 11:59 11:59 11:59 11:59 Intake Total 1179 / 1179 6938 / 6938 5213 / 5213 2774 / 2774 Output Total 200 / 200 1300 / 1300 1350 / 1350 1400 / 1400 Balance 979 / 979 5638 / 5638 3863 / 3863 1374 / 1374 - Physical Exam Oriented: Unable to test Eyes: Normal Ear: Normal Nose: Normal Throat: Normal Respiratory: Generalized, Diminished Cardiovascular: Normal. negative: S3, S4, Murmur : Normal Auscultation: Bowel Sounds: Normal Palpation: Normal Tenderness: Normal Skin: Wound (RIGHT FOOT WOUND ) Musculoskeletal: Right, Foot, Tender Psychiatric: Other Mood Description: Calm, Flat Affect: Flat Speech Pattern: Unclear, Delayed - Laboratory and Diagnostics Result Diagrams: 05/06/19 04:08 05/06/19 20:36 Labs: 05/03/19 17:30 Blood Blood Culture - Preliminary 05/03/19 17:25 Blood Blood Culture - Preliminary 05/03/19 20:00 Ankle - Right Gram Stain - Final 05/03/19 20:00 Ankle - Right Wound Culture - Preliminary Enterococcus Faecalis 05/03/19 16:43 Foot - Right Gram Stain - Final 05/03/19 16:43 Foot - Right Wound Culture - Preliminary Enterococcus Faecalis Laboratory WBC 9.6 X10^3/uL (3.6-10.0) 05/06/19 04:08 RBC 2.74 X10^6/uL (3.5-5.4) L 05/06/19 04:08 Hgb 8.0 g/dL (12.0-16.0) L 05/06/19 04:08 Hct 23.9 % (36.0-47.0) L 05/06/19 04:08 MCV 87.2 fL (80.0-100.0) 05/06/19 04:08 MCH 29.1 pg (27.0-34.0) 05/06/19 04:08 MCHC 33.4 g/dL (33.0-35.0) 05/06/19 04:08 RDW 14.2 % (11.6-16.5) 05/06/19 04:08 Plt Count 172 X10^3/uL (150.0-450.0) 05/06/19 04:08 MPV 11.8 fL (7.4-11.0) H 05/06/19 04:08 Neut % (Auto) 73.1 % (42.0-75.0) 05/06/19 04:08 Lymph % (Auto) 16.1 % (21.0-51.0) L 05/06/19 04:08 [place] % (Auto) 6.7 % (0.0-13.0) 05/06/19 04:08 Eos % (Auto) 3.7 % (0.9-2.9) H 05/06/19 04:08 Baso % (Auto) 0.4 % (0.2-1.0) 05/06/19 04:08 Neut # (Auto) 7.0 x10^3/uL (2.2-4.8) H 05/06/19 04:08 Lymph # (Auto) 1.5 X10^3/uL (1.3-2.9) 05/06/19 04:08 [place] # (Auto) 0.6 x10^3/uL (0.3-0.8) 05/06/19 04:08 Eos # (Auto) 0.4 x10^3/uL (0.0-0.2) H 05/06/19 04:08 Baso # (Auto) 0.0 X10^3/uL (0.0-0.1) 05/06/19 04:08 Absolute Nucleated RBC 0.1 /100WBC 05/06/19 04:08 ESR 107 MM/HOUR (0-20) H 05/03/19 17:30 Sodium 141 mmol/L (136-145) 05/06/19 04:08 Corrected Sodium TNP 05/06/19 04:08 Potassium 4.3 mmol/L (3.5-5.1) 05/06/19 04:08 Chloride 110 mmol/L (98-107) H 05/06/19 04:08 Carbon Dioxide 24.4 mmol/L (21-32) 05/06/19 04:08 BUN 63 mg/dL (7-18) H 05/06/19 04:08 Creatinine 1.53 mg/dL (0.55-1.02) H 05/06/19 20:36 Est GFR (MDRD) Af Amer 44 (>60) L 05/06/19 04:08 Est GFR (MDRD) Non-Af 36 (>60) L 05/06/19 04:08 Glucose 87 mg/dL (65-99) 05/06/19 04:08 POC Glucose (mg/dL) 149 mg/dL (65-99) H 05/06/19 21:14 Lactic Acid 2.1 mmol/L (0.4-2.0) H 05/03/19 17:30 Calcium 7.5 mg/dL (8.5-10.1) L 05/06/19 04:08 Corrected Calcium 9.3 mg/dL (8.5-10.1) 05/06/19 04:08 Magnesium 3.3 mg/dL (1.7-2.9) H 05/04/19 05:03 Total Bilirubin 0.20 mg/dL (0.2-1.0) 05/06/19 04:08 AST 56 Units/L (15-37) H 05/06/19 04:08 ALT 81 Units/L (12-78) H 05/06/19 04:08 Alkaline Phosphatase 55 Units/L (46-116) 05/06/19 04:08 Ammonia < 10 umol/L (11-32) L 05/03/19 17:30 Creatine Kinase 193 Units/L (26-192) H 05/04/19 05:03 CK-MB (CK-2) 1.2 ng/mL (0-4.0) 05/04/19 05:03 CK/CKMB % Calc 0.6 % (<4) 05/04/19 05:03 Troponin I < 0.02 ng/mL (0-1.5) 05/04/19 05:03 C-Reactive Protein 63.20 mg/L (0-3.0) H 05/03/19 17:30 B-Natriuretic Peptide 23.7 pg/mL (0-79) 05/04/19 05:03 Total Protein 5.3 g/dL (6.4-8.2) L 05/06/19 04:08 Albumin 1.7 g/dL (3.4-5.0) L 05/06/19 04:08 Globulin 3.6 g/dL (2.5-4.5) 05/06/19 04:08 Albumin/Globulin Ratio 0.5 Ratio (1.1-2.1) L 05/06/19 04:08 Triglycerides 171 mg/dL (0-150) H 05/04/19 05:03 Cholesterol 149 mg/dL (0-200) 05/04/19 05:03 LDL Cholesterol, Calc 88 mg/dL (0-100) 05/04/19 05:03 HDL Cholesterol 27 mg/dL (40-60) L 05/04/19 05:03 Cholesterol/HDL Ratio 5.5 (0.0-5.0) H 05/04/19 05:03 Specimen Type Catherized urine 05/03/19 18:07 Urine Color Yellow (YELLOW) 05/03/19 18:07 Urine Appearance Cloudy (CLEAR) 05/03/19 18:07 Urine pH 5.0 (5.0 - 8.0) 05/03/19 18:07 Ur Specific [place] 1.020 (1.000-1.030) 05/03/19 18:07 Urine Protein 2+ (NEGATIVE) 05/03/19 18:07 Urine Glucose (UA) Negative (NEGATIVE) 05/03/19 18:07 Urine Ketones Negative (NEGATIVE) 05/03/19 18:07 Urine Occult Blood 1+ (NEGATIVE) 05/03/19 18:07 Urine Nitrite Negative (NEGATIVE) 05/03/19 18:07 Urine Bilirubin Negative (NEGATIVE) 05/03/19 18:07 Urine Urobilinogen Normal (NORMAL) 05/03/19 18:07 Ur Leukocyte Esterase Negative (NEGATIVE) 05/03/19 18:07 Urine RBC 0-2 /HPF (0-3) 05/03/19 18:07 Urine WBC None seen /HPF (0-5) 05/03/19 18:07 Ur Squamous Epith Cells Few /HPF (NEGATIVE) 05/03/19 18:07 Amorphous Sediment 2+ /HPF (NEGATIVE) 05/03/19 18:07 Urine Bacteria Negative /HPF (NEGATIVE) 05/03/19 18:07 Granular Casts Few /LPF (NEGATIVE) 05/03/19 18:07 Ur Culture Indicated? No/not indicated 05/03/19 18:07 Vancomycin Trough 20.4 ug/mL (15-20) H* 05/06/19 20:36
[2019-05-07] MEDS ORDERED: NS 1/2 1000 ML IV 1,000 ML IV ONE ×2 (01:42→12:14)
[2019-05-07] MEDS: NS 1/2 1000 ML IV 1,000 ML IV SCH ×2 (02:32→13:00)
[2019-05-07 06:04] LABS: BASOPHILS % (AUTO) 0.5 % (0.2-1.0); EOSINOPHILS # (AUTO) 0.3 x10^3/uL (0.0-0.2); EOSINOPHILS % (AUTO) 3.2 % (0.9-2.9); HEMATOCRIT 26.2 % (36.0-47.0); HEMOGLOBIN 8.7 g/dL (12.0-16.0); LYMPHOCYTES # (AUTO) 1.3 X10^3/uL (1.3-2.9); LYMPHOCYTES % (AUTO) 14.9 % (21.0-51.0); MEAN CORPUSCULAR HEMOGLOBIN 28.5 pg (27.0-34.0); MEAN CORPUSCULAR HGB CONC 33.1 g/dL (33.0-35.0); MEAN CORPUSCULAR VOLUME 86.1 fL (80.0-100.0); MEAN PLATELET VOLUME 11.2 fL (7.4-11.0); MONOCYTES # (AUTO) 0.5 x10^3/uL (0.3-0.8); MONOCYTES % (AUTO) 6.1 % (0.0-13.0); NEUTROPHILS # (AUTO) 6.7 x10^3/uL (2.2-4.8); NEUTROPHILS % (AUTO) 75.3 % (42.0-75.0); PLATELET COUNT 182 X10^3/uL (150.0-450.0); RED BLOOD COUNT 3.04 X10^6/uL (3.5-5.4); WHITE BLOOD COUNT 8.9 X10^3/uL (3.6-10.0)
[2019-05-07 06:16] LABS: ALANINE AMINOTRANSFERASE 74 Units/L (12-78); ALBUMIN 2.1 g/dL (3.4-5.0); ALKALINE PHOSPHATASE 59 Units/L (46-116); ASPARTATE AMINO TRANSFERASE 48 Units/L (15-37); BLOOD UREA NITROGEN 42 mg/dL (7-18); CALCIUM 8.1 mg/dL (8.5-10.1); CARBON DIOXIDE 25.4 mmol/L (21-32); CHLORIDE 108 mmol/L (98-107); COR CA(FOR HYPOALB) 9.6 mg/dL (8.5-10.1); CREATININE 1.31 mg/dL (0.55-1.02); SODIUM 140 mmol/L (136-145); eGFR NON BLACK RACES 42 (>60)
[2019-05-07] MEDS ORDERED: VANCOMYCIN HCL 500 MG in D5W 100 ML IV 100 ML IV SCH (09:00)
[2019-05-07] MEDS: LOVENOX INJ 30 MG SYR SC SCH (10:11)
[2019-05-07] MEDS: ROCEPHIN VIAL 1 GRAM 1 G in NS 100 ML IV + SPIKE MINIBAG* 100 ML IV SCH (10:11)
[2019-05-07] MEDS: VANCOMYCIN HCL 500 MG in NS 100 ML IV 100 ML IV SCH ×2 (10:12→21:43)
[2019-05-07] MEDS: ALBUMIN HUMAN 25%- 100 ML 100 ML IV SCH (10:12)
[2019-05-07] MEDS: NS 1000 ML 1,000 ML IV SCH (14:49)
[2019-05-07] MEDS ORDERED: ZESTRIL TAB 20 MG ONE (20:23)
[2019-05-07] MEDS: ZESTRIL TAB 20 MG PO SCH (20:30)
[2019-05-08] MEDS: NS 1000 ML 1,000 ML IV SCH ×2 (04:00→18:48)
[2019-05-08 06:14] LABS: BASOPHILS % (AUTO) 0.5 % (0.2-1.0); EOSINOPHILS # (AUTO) 0.2 x10^3/uL (0.0-0.2); EOSINOPHILS % (AUTO) 2.4 % (0.9-2.9); HEMATOCRIT 22.6 % (36.0-47.0); HEMOGLOBIN 7.4 g/dL (12.0-16.0); LYMPHOCYTES % (AUTO) 11.8 % (21.0-51.0); MEAN CORPUSCULAR HEMOGLOBIN 28.4 pg (27.0-34.0); MEAN CORPUSCULAR HGB CONC 32.9 g/dL (33.0-35.0); MEAN CORPUSCULAR VOLUME 86.3 fL (80.0-100.0); MEAN PLATELET VOLUME 10.8 fL (7.4-11.0); MONOCYTES # (AUTO) 0.6 x10^3/uL (0.3-0.8); NEUTROPHILS # (AUTO) 6.8 x10^3/uL (2.2-4.8); NEUTROPHILS % (AUTO) 78.3 % (42.0-75.0); PLATELET COUNT 172 X10^3/uL (150.0-450.0); RED BLOOD COUNT 2.62 X10^6/uL (3.5-5.4); RED CELL DISTRIBUTION WIDTH 13.9 % (11.6-16.5); WHITE BLOOD COUNT 8.7 X10^3/uL (3.6-10.0)
[2019-05-08 06:23] LABS: ALANINE AMINOTRANSFERASE 62 Units/L (12-78); ALBUMIN 2.3 g/dL (3.4-5.0); ALKALINE PHOSPHATASE 50 Units/L (46-116); ASPARTATE AMINO TRANSFERASE 47 Units/L (15-37); BLOOD UREA NITROGEN 29 mg/dL (7-18); CARBON DIOXIDE 25.4 mmol/L (21-32); CHLORIDE 111 mmol/L (98-107); COR CA(FOR HYPOALB) 9.4 mg/dL (8.5-10.1); CREATININE 1.18 mg/dL (0.55-1.02); SODIUM 141 mmol/L (136-145); TOTAL PROTEIN 5.6 g/dL (6.4-8.2); eGFR NON BLACK RACES 47 (>60)
[2019-05-08 06:33] LABS: PLATELET MORPHOLOGY COMMENT NORMAL (NORMAL)
[2019-05-08] MEDS: LOVENOX INJ 30 MG SYR SC SCH (09:20)
[2019-05-08] MEDS: ALBUMIN HUMAN 25%- 100 ML 100 ML IV SCH (09:21)
[2019-05-08] MEDS: VANCOMYCIN HCL 500 MG in NS 100 ML IV 100 ML IV SCH ×2 (09:22→21:49)
[2019-05-08] MEDS: ROCEPHIN VIAL 1 GRAM 1 G in NS 100 ML IV + SPIKE MINIBAG* 100 ML IV SCH (09:23)
--- NOTE | 2019-05-08 12:45 | PCM.PROG ---
Progress Note Progress Note for Day of Date of Exam: 05/08/19 Subjective Subjective: Patient seen at bedside, awake. Denies any complaints, mostly non- verbal. Patient admitted for acute renal failure, dehydration and right 3rd digit osteomyelitis. Patient seen by Dr. Mays, recommended treatment with antibiotics, no surgical intervention needed at this time. Hgb noted to be 7.4 this AM. Past Medical Family Social History Past Med/Fam/Surg Hx: No changes since H&P Allergies: Allergies latex Allergy (Verified 05/03/19 15:50) Review of Systems ROS: No change since H&P Vital Signs and I&O's Vital Signs: Temperature 99.0 F Pulse Rate 80 Respiratory Rate 18 Blood Pressure [Left Arm] 144/65 Blood Pressure 149/67 O2 Sat by Pulse Oximetry 100 Intake and Output: Intake & Output 05/05/19 05/06/19 05/07/19 05/08/19 23:59 23:59 23:59 23:59 Intake Total 5095 / 5095 4480 / 4480 4234 / 4234 893 / 893 Output Total 1475 / 1475 2300 / 2300 2550 / 2550 450 / 450 Balance 3620 / 3620 2180 / 2180 1684 / 1684 443 / 443 Physical Exam Oriented: Unable to test Eyes: Normal Nose: Normal Throat: Normal Respiratory: Generalized and Diminished Cardiovascular: Normal, S3, S4 and Murmur Auscultation: Bowel Sounds: Normal Tenderness: Normal Skin: Wound (Right foot wound, dry ) Musculoskeletal: Right and Foot Psychiatric: Other Mood Description: Calm and Flat Affect: Flat Speech Pattern: Unclear and Delayed Laboratory and Diagnostics Result Diagrams: 05/08/19 05:32 05/08/19 05:32 Labs: 05/03/19 17:30 Blood Blood Culture - Final 05/03/19 20:00 Ankle - Right Gram Stain - Final 05/03/19 20:00 Ankle - Right Wound Culture - Final Enterococcus Faecalis Staphylococcus Lugdunesis 05/03/19 16:43 Foot - Right Gram Stain - Final 05/03/19 16:43 Foot - Right Wound Culture - Final Enterococcus Faecalis Staphylococcus Lugdunesis 05/03/19 17:25 Blood Blood Culture - Preliminary Laboratory WBC 8.7 X10^3/uL (3.6-10.0) 05/08/19 05:32 RBC 2.62 X10^6/uL (3.5-5.4) L 05/08/19 05:32 Hgb 7.4 g/dL (12.0-16.0) L 05/08/19 05:32 Hct 22.6 % (36.0-47.0) L 05/08/19 05:32 MCV 86.3 fL (80.0-100.0) 05/08/19 05:32 MCH 28.4 pg (27.0-34.0) 05/08/19 05:32 MCHC 32.9 g/dL (33.0-35.0) L 05/08/19 05:32 RDW 13.9 % (11.6-16.5) 05/08/19 05:32 Plt Count 172 X10^3/uL (150.0-450.0) 05/08/19 05:32 Plt Count Comment Adequate (ADEQUATE) 05/08/19 05:32 MPV 10.8 fL (7.4-11.0) 05/08/19 05:32 Neut % (Auto) 78.3 % (42.0-75.0) H 05/08/19 05:32 Lymph % (Auto) 11.8 % (21.0-51.0) L 05/08/19 05:32 [place] % (Auto) 7.0 % (0.0-13.0) 05/08/19 05:32 Eos % (Auto) 2.4 % (0.9-2.9) 05/08/19 05:32 Baso % (Auto) 0.5 % (0.2-1.0) 05/08/19 05:32 Neut # (Auto) 6.8 x10^3/uL (2.2-4.8) H 05/08/19 05:32 Lymph # (Auto) 1.0 X10^3/uL (1.3-2.9) L 05/08/19 05:32 [place] # (Auto) 0.6 x10^3/uL (0.3-0.8) 05/08/19 05:32 Eos # (Auto) 0.2 x10^3/uL (0.0-0.2) 05/08/19 05:32 Baso # (Auto) 0.0 X10^3/uL (0.0-0.1) 05/08/19 05:32 Absolute Nucleated RBC 0.0 /100WBC 05/08/19 05:32 Plt Morphology Comment Normal (NORMAL) 05/08/19 05:32 RBC Morphology Normal (NORMAL) 05/08/19 05:32 ESR 107 MM/HOUR (0-20) H 05/03/19 17:30 Sodium 141 mmol/L (136-145) 05/08/19 05:32 Corrected Sodium TNP 05/08/19 05:32 Potassium 4.3 mmol/L (3.5-5.1) 05/08/19 05:32 Chloride 111 mmol/L (98-107) H 05/08/19 05:32 Carbon Dioxide 25.4 mmol/L (21-32) 05/08/19 05:32 BUN 29 mg/dL (7-18) H 05/08/19 05:32 Creatinine 1.18 mg/dL (0.55-1.02) H 05/08/19 05:32 Est GFR (MDRD) Af Amer 57 (>60) L 05/08/19 05:32 Est GFR (MDRD) Non-Af 47 (>60) L 05/08/19 05:32 Glucose 97 mg/dL (65-99) 05/08/19 05:32 POC Glucose (mg/dL) 102 mg/dL (65-99) H 05/08/19 11:36 Lactic Acid 2.1 mmol/L (0.4-2.0) H 05/03/19 17:30 Calcium 8.0 mg/dL (8.5-10.1) L 05/08/19 05:32 Corrected Calcium 9.4 mg/dL (8.5-10.1) 05/08/19 05:32 Magnesium 3.3 mg/dL (1.7-2.9) H 05/04/19 05:03 Total Bilirubin 0.20 mg/dL (0.2-1.0) 05/08/19 05:32 AST 47 Units/L (15-37) H 05/08/19 05:32 ALT 62 Units/L (12-78) 05/08/19 05:32 Alkaline Phosphatase 50 Units/L (46-116) 05/08/19 05:32 Ammonia < 10 umol/L (11-32) L 05/03/19 17:30 Creatine Kinase 193 Units/L (26-192) H 05/04/19 05:03 CK-MB (CK-2) 1.2 ng/mL (0-4.0) 05/04/19 05:03 CK/CKMB % Calc 0.6 % (<4) 05/04/19 05:03 Troponin I < 0.02 ng/mL (0-1.5) 05/04/19 05:03 C-Reactive Protein 63.20 mg/L (0-3.0) H 05/03/19 17:30 B-Natriuretic Peptide 23.7 pg/mL (0-79) 05/04/19 05:03 Total Protein 5.6 g/dL (6.4-8.2) L 05/08/19 05:32 Albumin 2.3 g/dL (3.4-5.0) L 05/08/19 05:32 Globulin 3.3 g/dL (2.5-4.5) 05/08/19 05:32 Albumin/Globulin Ratio 0.7 Ratio (1.1-2.1) L 05/08/19 05:32 Triglycerides 171 mg/dL (0-150) H 05/04/19 05:03 Cholesterol 149 mg/dL (0-200) 05/04/19 05:03 LDL Cholesterol, Calc 88 mg/dL (0-100) 05/04/19 05:03 HDL Cholesterol 27 mg/dL (40-60) L 05/04/19 05:03 Cholesterol/HDL Ratio 5.5 (0.0-5.0) H 05/04/19 05:03 Specimen Type Catherized urine 05/03/19 18:07 Urine Color Yellow (YELLOW) 05/03/19 18:07 Urine Appearance Cloudy (CLEAR) 05/03/19 18:07 Urine pH 5.0 (5.0 - 8.0) 05/03/19 18:07 Ur Specific [place] 1.020 (1.000-1.030) 05/03/19 18:07 Urine Protein 2+ (NEGATIVE) 05/03/19 18:07 Urine Glucose (UA) Negative (NEGATIVE) 05/03/19 18:07 Urine Ketones Negative (NEGATIVE) 05/03/19 18:07 Urine Occult Blood 1+ (NEGATIVE) 05/03/19 18:07 Urine Nitrite Negative (NEGATIVE) 05/03/19 18:07 Urine Bilirubin Negative (NEGATIVE) 05/03/19 18:07 Urine Urobilinogen Normal (NORMAL) 05/03/19 18:07 Ur Leukocyte Esterase Negative (NEGATIVE) 05/03/19 18:07 Urine RBC 0-2 /HPF (0-3) 05/03/19 18:07 Urine WBC None seen /HPF (0-5) 05/03/19 18:07 Ur Squamous Epith Cells Few /HPF (NEGATIVE) 05/03/19 18:07 Amorphous Sediment 2+ /HPF (NEGATIVE) 05/03/19 18:07 Urine Bacteria Negative /HPF (NEGATIVE) 05/03/19 18:07 Granular Casts Few /LPF (NEGATIVE) 05/03/19 18:07 Ur Culture Indicated? No/not indicated 05/03/19 18:07 Stool Description 20g,brown,semisolid 05/07/19 14:35 Stl Occult Blood (IFOB) Positive (NEGATIVE) A 05/07/19 14:35 Vancomycin Trough 20.4 ug/mL (15-20) H* 05/06/19 20:36 Plan (1) Dehydration: Status: Acute Plan: resolved (2) Acute renal failure: Status: Acute Qualifiers: Acute renal failure type: unspecified Qualified Code(s): N17.9 - Acute kidney failure, unspecified Plan: resolved, Cr down from 3.36 to 1.18, will DC hydration as patient is eating and drinking well. (3) Anemia: Status: Acute Qualifiers: Anemia type: unspecified type Qualified Code(s): D64.9 - Anemia, unspecified Plan: hgb trending down from 11.2 to 7.4. No active bleeding noted. FOBT + will repeat in the evening, if < 7, will transfuse 1 unit. Check anemia panel, stop IV fluids as some of it could be dilutional. (4) Osteomyelitis of right foot: Status: Acute Qualifiers: Osteomyelitis type: unspecified type Qualified Code(s): M86.9 - Osteomyelitis, unspecified Plan: evaluated by Dr. Mays, recommended to continue antibiotics, no surgical intervention needed at this time. Wound Cx: Staph lug and E. Faecalis. Currently on Vancomycin and Rocephin. Blood Cx x 1: Gram positive cocci likely contamination. Will repeat blood cultures. (5) Skin ulcer of multiple sites: Status: Acute Qualifiers: Non-pressure ulcer stage: unspecified non-pressure ulcer stage Qualified Code(s): L98.499 - Non-pressure chronic ulcer of skin of other sites with unspecified severity Plan: continue wound care (6) Hyperkalemia: Status: Acute (7) Hypernatremia: Status: Acute (8) CVA (cerebral vascular accident): Status: Acute Qualifiers: CVA mechanism: unspecified Qualified Code(s): I63.9 - Cerebral infarction, unspecified (9) AMS (altered mental status): Status: Acute Qualifiers: Altered mental status type: unspecified Qualified Code(s): R41.82 - Altered mental status, unspecified Plan: chronic, CT head chronic small vessel disease. Patient mostly non-verbal, does not follow commands, seems to be at baseline.
[2019-05-08 17:39] LABS: HEMATOCRIT 22.4 % (36.0-47.0); HEMOGLOBIN 7.4 g/dL (12.0-16.0)
[2019-05-08] MEDS ORDERED: ZESTRIL TAB 20 MG ONE (20:28)
[2019-05-08] MEDS ORDERED: PHARMACY COMMENT IV NR (20:30)
[2019-05-08] MEDS: ZESTRIL TAB 20 MG PO SCH (20:56)
[2019-05-08 21:30] LABS: CREATININE 1.33 mg/dL (0.55-1.02)
[2019-05-08 21:34] LABS: VANCOMYCIN,TROUGH 22.1 ug/mL (15-20)
[2019-05-09 06:40] LABS: BASOPHILS # (AUTO) 0.1 X10^3/uL (0.0-0.1); BASOPHILS % (AUTO) 0.7 % (0.2-1.0); EOSINOPHILS # (AUTO) 0.2 x10^3/uL (0.0-0.2); EOSINOPHILS % (AUTO) 2.3 % (0.9-2.9); HEMATOCRIT 23.9 % (36.0-47.0); HEMOGLOBIN 7.9 g/dL (12.0-16.0); LYMPHOCYTES # (AUTO) 1.3 X10^3/uL (1.3-2.9); LYMPHOCYTES % (AUTO) 13.2 % (21.0-51.0); MEAN CORPUSCULAR HEMOGLOBIN 28.6 pg (27.0-34.0); MEAN CORPUSCULAR HGB CONC 33.1 g/dL (33.0-35.0); MEAN CORPUSCULAR VOLUME 86.4 fL (80.0-100.0); MEAN PLATELET VOLUME 10.8 fL (7.4-11.0); MONOCYTES # (AUTO) 0.7 x10^3/uL (0.3-0.8); MONOCYTES % (AUTO) 6.9 % (0.0-13.0); NEUTROPHILS # (AUTO) 7.5 x10^3/uL (2.2-4.8); NEUTROPHILS % (AUTO) 76.9 % (42.0-75.0); PLATELET COUNT 193 X10^3/uL (150.0-450.0); RED BLOOD COUNT 2.77 X10^6/uL (3.5-5.4); RED CELL DISTRIBUTION WIDTH 14.4 % (11.6-16.5); WHITE BLOOD COUNT 9.8 X10^3/uL (3.6-10.0)
[2019-05-09 06:47] LABS: PLATELET MORPHOLOGY COMMENT NORMAL (NORMAL)
[2019-05-09 06:52] LABS: ALANINE AMINOTRANSFERASE 64 Units/L (12-78); ALBUMIN 2.7 g/dL (3.4-5.0); ALKALINE PHOSPHATASE 55 Units/L (46-116); ASPARTATE AMINO TRANSFERASE 50 Units/L (15-37); BLOOD UREA NITROGEN 24 mg/dL (7-18); CALCIUM 8.4 mg/dL (8.5-10.1); CARBON DIOXIDE 25.9 mmol/L (21-32); CHLORIDE 108 mmol/L (98-107); COR CA(FOR HYPOALB) 9.4 mg/dL (8.5-10.1); SODIUM 140 mmol/L (136-145); TOTAL PROTEIN 6.1 g/dL (6.4-8.2); eGFR NON BLACK RACES 42 (>60)
[2019-05-09] MEDS: LOVENOX INJ 30 MG SYR SC SCH (08:32)
[2019-05-09] MEDS: ALBUMIN HUMAN 25%- 100 ML 100 ML IV SCH (08:33)
[2019-05-09] MEDS: ROCEPHIN VIAL 1 GRAM 1 G in NS 100 ML IV + SPIKE MINIBAG* 100 ML IV SCH (08:36)
--- NOTE | 2019-05-09 12:36 | PCM.PROG ---
Progress Note Progress Note for Day of Date of Exam: 05/09/19 Subjective Subjective: Patient seen at bedside, no acute events overnight. Patient denies any complaints. Hgb noted to be 7.9 this AM, low iron. Repeat blood cultures pending. Past Medical Family Social History Past Med/Fam/Surg Hx: No changes since H&P Allergies: Allergies latex Allergy (Verified 05/03/19 15:50) Review of Systems ROS: No change since H&P Vital Signs and I&O's Vital Signs: Temperature 99.2 F Pulse Rate 77 Respiratory Rate 18 Blood Pressure [Left Arm] 144/65 Blood Pressure 153/66 O2 Sat by Pulse Oximetry 100 Intake and Output: Intake & Output 05/06/19 05/07/19 05/08/19 05/09/19 23:59 23:59 23:59 23:59 Intake Total 4480 / 4480 4234 / 4234 2791 / 2791 130 / 130 Output Total 2300 / 2300 2550 / 2550 1300 / 1300 250 / 250 Balance 2180 / 2180 1684 / 1684 1491 / 1491 -120 / -120 Physical Exam Oriented: Unable to test Eyes: Normal Ear: Normal Nose: Normal Throat: Normal Respiratory: Diminished Cardiovascular: Normal and Murmur Auscultation: Bowel Sounds: Normal Tenderness: Normal Skin: Wound (Right foot wound, dry ) Musculoskeletal: Right and Foot Psychiatric: Other Mood Description: Calm and Flat Affect: Flat Speech Pattern: Unclear and Delayed Laboratory and Diagnostics Result Diagrams: 05/09/19 06:00 05/09/19 06:00 Labs: 05/03/19 17:25 Blood Blood Culture - Final 05/03/19 17:30 Blood Blood Culture - Final 05/03/19 20:00 Ankle - Right Gram Stain - Final 05/03/19 20:00 Ankle - Right Wound Culture - Final Enterococcus Faecalis Staphylococcus Lugdunesis 05/03/19 16:43 Foot - Right Gram Stain - Final 05/03/19 16:43 Foot - Right Wound Culture - Final Enterococcus Faecalis Staphylococcus Lugdunesis Laboratory WBC 9.8 X10^3/uL (3.6-10.0) 05/09/19 06:00 RBC 2.77 X10^6/uL (3.5-5.4) L 05/09/19 06:00 Hgb 7.9 g/dL (12.0-16.0) L 05/09/19 06:00 Hct 23.9 % (36.0-47.0) L 05/09/19 06:00 MCV 86.4 fL (80.0-100.0) 05/09/19 06:00 MCH 28.6 pg (27.0-34.0) 05/09/19 06:00 MCHC 33.1 g/dL (33.0-35.0) 05/09/19 06:00 RDW 14.4 % (11.6-16.5) 05/09/19 06:00 Plt Count 193 X10^3/uL (150.0-450.0) 05/09/19 06:00 Plt Count Comment Adequate (ADEQUATE) 05/09/19 06:00 MPV 10.8 fL (7.4-11.0) 05/09/19 06:00 Neut % (Auto) 76.9 % (42.0-75.0) H 05/09/19 06:00 Lymph % (Auto) 13.2 % (21.0-51.0) L 05/09/19 06:00 [place] % (Auto) 6.9 % (0.0-13.0) 05/09/19 06:00 Eos % (Auto) 2.3 % (0.9-2.9) 05/09/19 06:00 Baso % (Auto) 0.7 % (0.2-1.0) 05/09/19 06:00 Neut # (Auto) 7.5 x10^3/uL (2.2-4.8) H 05/09/19 06:00 Lymph # (Auto) 1.3 X10^3/uL (1.3-2.9) 05/09/19 06:00 [place] # (Auto) 0.7 x10^3/uL (0.3-0.8) 05/09/19 06:00 Eos # (Auto) 0.2 x10^3/uL (0.0-0.2) 05/09/19 06:00 Baso # (Auto) 0.1 X10^3/uL (0.0-0.1) 05/09/19 06:00 Absolute Nucleated RBC 0.0 /100WBC 05/09/19 06:00 Plt Morphology Comment Normal (NORMAL) 05/09/19 06:00 RBC Morphology Normal (NORMAL) 05/09/19 06:00 ESR 107 MM/HOUR (0-20) H 05/03/19 17:30 Sodium 140 mmol/L (136-145) 05/09/19 06:00 Corrected Sodium TNP 05/09/19 06:00 Potassium 4.6 mmol/L (3.5-5.1) 05/09/19 06:00 Chloride 108 mmol/L (98-107) H 05/09/19 06:00 Carbon Dioxide 25.9 mmol/L (21-32) 05/09/19 06:00 BUN 24 mg/dL (7-18) H 05/09/19 06:00 Creatinine 1.30 mg/dL (0.55-1.02) H 05/09/19 06:00 Est GFR (MDRD) Af Amer 51 (>60) L 05/09/19 06:00 Est GFR (MDRD) Non-Af 42 (>60) L 05/09/19 06:00 Glucose 103 mg/dL (65-99) H 05/09/19 06:00 POC Glucose (mg/dL) 133 mg/dL (65-99) H 05/09/19 12:10 Lactic Acid 2.1 mmol/L (0.4-2.0) H 05/03/19 17:30 Calcium 8.4 mg/dL (8.5-10.1) L 05/09/19 06:00 Corrected Calcium 9.4 mg/dL (8.5-10.1) 05/09/19 06:00 Magnesium 3.3 mg/dL (1.7-2.9) H 05/04/19 05:03 Iron 20 ug/dL (50-175) L 05/08/19 05:52 Transferrin 87 mg/dL (202-364) L 05/08/19 05:52 Ferritin 520 ng/mL (8-252) H 05/08/19 05:52 Total Bilirubin 0.20 mg/dL (0.2-1.0) 05/09/19 06:00 AST 50 Units/L (15-37) H 05/09/19 06:00 ALT 64 Units/L (12-78) 05/09/19 06:00 Alkaline Phosphatase 55 Units/L (46-116) 05/09/19 06:00 Ammonia < 10 umol/L (11-32) L 05/03/19 17:30 Creatine Kinase 193 Units/L (26-192) H 05/04/19 05:03 CK-MB (CK-2) 1.2 ng/mL (0-4.0) 05/04/19 05:03 CK/CKMB % Calc 0.6 % (<4) 05/04/19 05:03 Troponin I < 0.02 ng/mL (0-1.5) 05/04/19 05:03 C-Reactive Protein 63.20 mg/L (0-3.0) H 05/03/19 17:30 B-Natriuretic Peptide 23.7 pg/mL (0-79) 05/04/19 05:03 Total Protein 6.1 g/dL (6.4-8.2) L 05/09/19 06:00 Albumin 2.7 g/dL (3.4-5.0) L 05/09/19 06:00 Globulin 3.4 g/dL (2.5-4.5) 05/09/19 06:00 Albumin/Globulin Ratio 0.8 Ratio (1.1-2.1) L 05/09/19 06:00 Triglycerides 171 mg/dL (0-150) H 05/04/19 05:03 Cholesterol 149 mg/dL (0-200) 05/04/19 05:03 LDL Cholesterol, Calc 88 mg/dL (0-100) 05/04/19 05:03 HDL Cholesterol 27 mg/dL (40-60) L 05/04/19 05:03 Cholesterol/HDL Ratio 5.5 (0.0-5.0) H 05/04/19 05:03 Vitamin B12 1068 pg/mL (193-986) H 05/08/19 05:52 Folate 18.4 ng/mL (>8.6) 05/08/19 05:52 Specimen Type Catherized urine 05/03/19 18:07 Urine Color Yellow (YELLOW) 05/03/19 18:07 Urine Appearance Cloudy (CLEAR) 05/03/19 18:07 Urine pH 5.0 (5.0 - 8.0) 05/03/19 18:07 Ur Specific [place] 1.020 (1.000-1.030) 05/03/19 18:07 Urine Protein 2+ (NEGATIVE) 05/03/19 18:07 Urine Glucose (UA) Negative (NEGATIVE) 05/03/19 18:07 Urine Ketones Negative (NEGATIVE) 05/03/19 18:07 Urine Occult Blood 1+ (NEGATIVE) 05/03/19 18:07 Urine Nitrite Negative (NEGATIVE) 05/03/19 18:07 Urine Bilirubin Negative (NEGATIVE) 05/03/19 18:07 Urine Urobilinogen Normal (NORMAL) 05/03/19 18:07 Ur Leukocyte Esterase Negative (NEGATIVE) 05/03/19 18:07 Urine RBC 0-2 /HPF (0-3) 05/03/19 18:07 Urine WBC None seen /HPF (0-5) 05/03/19 18:07 Ur Squamous Epith Cells Few /HPF (NEGATIVE) 05/03/19 18:07 Amorphous Sediment 2+ /HPF (NEGATIVE) 05/03/19 18:07 Urine Bacteria Negative /HPF (NEGATIVE) 05/03/19 18:07 Granular Casts Few /LPF (NEGATIVE) 05/03/19 18:07 Ur Culture Indicated? No/not indicated 05/03/19 18:07 Stool Description 20g,brown,semisolid 05/07/19 14:35 Stl Occult Blood (IFOB) Positive (NEGATIVE) A 05/07/19 14:35 Vancomycin Trough 22.1 ug/mL (15-20) H* 05/08/19 20:55 Plan (1) Dehydration: Status: Acute Plan: resolved (2) Acute renal failure: Status: Acute Qualifiers: Acute renal failure type: unspecified Qualified Code(s): N17.9 - Acute kidney failure, unspecified Plan: resolved, Cr 1.30 (3) Anemia: Status: Acute Qualifiers: Anemia type: unspecified type Qualified Code(s): D64.9 - Anemia, unspecified Plan: hgb trending down from 11.2 to 7.4 yesterday. No active bleeding noted. FOBT + Today hgb: 7.9, low iron. Will start iron supplements. (4) Osteomyelitis of right foot: Status: Acute Qualifiers: Osteomyelitis type: unspecified type Qualified Code(s): M86.9 - Osteom yelitis, unspecified Plan: evaluated by Dr. Mays, recommended to continue antibiotics, no surgical intervention needed at this time. Wound Cx: Staph lug and E. Faecalis. Currently on Vancomycin and Rocephin. Will DC Rocephin. Blood Cx x 1: Gram positive cocci likely contamination. Repeat blood cultures pending. (5) Skin ulcer of multiple sites: Status: Acute Qualifiers: Non-pressure ulcer stage: unspecified non-pressure ulcer stage Qualified Code(s): L98.499 - Non-pressure chronic ulcer of skin of other sites with unspecified severity Plan: continue wound care (6) Hyperkalemia: Status: Acute Plan: Resolved (7) Hypernatremia: Status: Acute Plan: Resolved (8) CVA (cerebral vascular accident): Status: Acute Qualifiers: CVA mechanism: unspecified Qualified Code(s): I63.9 - Cerebral infarction, unspecified (9) AMS (altered mental status): Status: Acute Qualifiers: Altered mental status type: unspecified Qualified Code(s): R41.82 - Altered mental status, unspecified Plan: chronic, CT head chronic small vessel disease. Patient mostly non- verbal, does not follow commands, seems to be at baseline.
[2019-05-09] MEDS: NS 1000 ML 1,000 ML IV SCH ×2 (13:29→22:00)
[2019-05-09] MEDS: FERROUS GLUCONATE PO SCH (17:00)
[2019-05-09] MEDS ORDERED: ZESTRIL TAB 20 MG ONE (20:14)
[2019-05-09] MEDS: ZESTRIL TAB 20 MG PO SCH (20:20)
[2019-05-09] MEDS: VANCOMYCIN HCL 750 MG in D5W 250 ML IV 250 ML IV SCH ×3 (21:15)
[2019-05-10 06:28] LABS: BASOPHILS # (AUTO) 0.1 X10^3/uL (0.0-0.1); BASOPHILS % (AUTO) 0.7 % (0.2-1.0); EOSINOPHILS # (AUTO) 0.2 x10^3/uL (0.0-0.2); EOSINOPHILS % (AUTO) 2.6 % (0.9-2.9); HEMATOCRIT 22.5 % (36.0-47.0); HEMOGLOBIN 7.4 g/dL (12.0-16.0); LYMPHOCYTES # (AUTO) 1.5 X10^3/uL (1.3-2.9); LYMPHOCYTES % (AUTO) 17.5 % (21.0-51.0); MEAN CORPUSCULAR HEMOGLOBIN 28.6 pg (27.0-34.0); MEAN CORPUSCULAR HGB CONC 32.9 g/dL (33.0-35.0); MEAN CORPUSCULAR VOLUME 86.8 fL (80.0-100.0); MEAN PLATELET VOLUME 10.7 fL (7.4-11.0); MONOCYTES # (AUTO) 0.6 x10^3/uL (0.3-0.8); MONOCYTES % (AUTO) 7.5 % (0.0-13.0); NEUTROPHILS % (AUTO) 71.7 % (42.0-75.0); PLATELET COUNT 160 X10^3/uL (150.0-450.0); RED BLOOD COUNT 2.59 X10^6/uL (3.5-5.4); RED CELL DISTRIBUTION WIDTH 14.6 % (11.6-16.5); WHITE BLOOD COUNT 8.4 X10^3/uL (3.6-10.0)
[2019-05-10 06:42] LABS: ALANINE AMINOTRANSFERASE 43 Units/L (12-78); ALBUMIN 2.7 g/dL (3.4-5.0); ALKALINE PHOSPHATASE 47 Units/L (46-116); ASPARTATE AMINO TRANSFERASE 29 Units/L (15-37); BLOOD UREA NITROGEN 24 mg/dL (7-18); CALCIUM 8.5 mg/dL (8.5-10.1); CARBON DIOXIDE 26.3 mmol/L (21-32); CHLORIDE 109 mmol/L (98-107); COR CA(FOR HYPOALB) 9.5 mg/dL (8.5-10.1); CREATININE 1.19 mg/dL (0.55-1.02); SODIUM 140 mmol/L (136-145); TOTAL PROTEIN 5.8 g/dL (6.4-8.2); eGFR NON BLACK RACES 47 (>60)
[2019-05-10 06:58] LABS: PLATELET MORPHOLOGY COMMENT NORMAL (NORMAL)
[2019-05-10] MEDS: FERROUS GLUCONATE PO SCH ×2 (07:44→17:33)
[2019-05-10] MEDS: LOVENOX INJ 30 MG SYR SC SCH (09:49)
[2019-05-10] MEDS: ALBUMIN HUMAN 25%- 100 ML 100 ML IV SCH (09:50)
[2019-05-10] MEDS ORDERED: BENADRYL INJ 50 MG VIAL IVP ONE (10:55)
[2019-05-10] MEDS ORDERED: TYLENOL 325 MG TAB PO ONE ×2 (10:55→17:27)
[2019-05-10] MEDS: PEPCID 20 MG IV PREMIX* 20 MG/50 ML BAG IV SCH ×2 (11:55→21:54)
[2019-05-10] MEDS: PROTONIX INJ 40 MG VIAL IVP SCH ×2 (11:55→21:54)
[2019-05-10] MEDS ORDERED: BENADRYL INJ 50 MG VIAL ONE (17:27)
[2019-05-10] MEDS ORDERED: NS 500 ML IV 500 ML IV ONE (17:28)
[2019-05-10] MEDS: NS 1000 ML 1,000 ML IV SCH (18:27)
[2019-05-10] MEDS ORDERED: ZESTRIL TAB 20 MG ONE (20:17)
[2019-05-10] MEDS: ZESTRIL TAB 20 MG PO SCH (20:30)
--- NOTE | 2019-05-10 20:31 | PCM.PROG ---
Progress Note - Progress Note for Day of Date of Exam: 05/06/19 - Subjective Subjective: WAS ADMITTED FOR TREATMENT OF ACUTE RENAL FAILURE, SEVERE DEHYDRATION, HYPERNATREMIA, HYPERKALEMIA, AND OSTEOMYELITIS OF THE RIGHT FOOT. TODAY, SHE IS MORE ALERT, BUT DOES NOT VERBALLY RESPOND. ON EXAMINATION, HEART IS REGULAR IN RATE AND RHYTHM. BILATERAL LUNGS ARE NOTED WITH DIMINISHED LUNG SOUNDS THROUGHOUT. ABDOMEN IS FLAT, SOFT, AND NON-TENDER. HYPOACTIVE BOWEL SOUNDS ARE NOTED. LOWER EXTREMITIES ARE CONTRACTED. THERE IS A WOUND NOTED TO THE RIGHT OUTER ANKLE. WOUND IS APPROXIMATELY THE SIZE OF A QUARTER. SLOUGH COVERING WOUND BED. THE 3RD TO IS ISCHEMIC. HER VITALS THIS MORNING ARE: 98.3-72-16-100%-164/77. LABS WERE OBTAINED. ABNORMAL LAB VALUES INCLUDE THE FOLLOWING: RBC 2.74, HGB 8.0, HCT 23.9, CHLORIDE 110, BUN 63, CREATININE 1.48, CALCIUM 7.5, AST 56, ALT 81. WOUND AND BLOOD CULTURES ARE PENDING. SHE IS CURRENTLY RECEIVING 1/2NS AT 125ML/HR, IV CIPRO, IV VANCOMYCIN, AND HUMULIN R SLIDING SCALE. WE CONSULTED WITH AT LENGTH CONCERNING PATIENTS FOOT. WE SPOKE FOR AT LEAST 16 MINUTES ABOUT THE PLAN OF CARE. TODAY, WE WILL ADD ALBUMIN 25% IV DAILY. OTHERWISE, WE WILL CONTINUE WITH CURRENT PLAN OF CARE. WE WILL FOLLOW UP WITH AM LABS AND CONTINUE TO MONITOR. - Past Medical Family Social History Past Med/Fam/Surg Hx: No changes since H&P Allergies: Allergies latex Allergy (Verified 05/03/19 15:50) - Review of Systems ROS: No change since H&P - Vital Signs and I&O's Vital Signs: Temperature 98.6 F Pulse Rate 60 Respiratory Rate 19 Blood Pressure [Left Arm] 144/65 Blood Pressure 149/66 O2 Sat by Pulse Oximetry 100 Intake and Output: Intake & Output 05/08/19 05/09/19 05/10/19 05/11/19 11:59 11:59 11:59 11:59 Intake Total 4161 / 4161 2027 1758 / 1758 300 / 300 Output Total 2200 / 2200 1100 / 1100 1000 / 1000 750 / 750 Balance 1960 / 1960 928 / 928 758 / 758 -450 / -450 - Physical Exam Oriented: Unable to test Eyes: Normal Ear: Normal Nose: Normal Throat: Normal Respiratory: Diminished Cardiovascular: Murmur, Normal : Normal Auscultation: Bowel Sounds: Normal Tenderness: Normal Skin: Wound (Right foot wound, dry) Musculoskeletal: Right, Foot Psychiatric: Other Mood Description: Calm, Flat Affect: Flat Speech Pattern: Unclear, Delayed - Laboratory and Diagnostics Result Diagrams: 05/10/19 06:00 05/10/19 06:00 Labs: 05/08/19 13:20 Blood Blood Culture - Preliminary 05/08/19 13:10 Blood Blood Culture - Preliminary 05/03/19 17:25 Blood Blood Culture - Final 05/03/19 17:30 Blood Blood Culture - Final 05/03/19 20:00 Ankle - Right Gram Stain - Final 05/03/19 20:00 Ankle - Right Wound Culture - Final Enterococcus Faecalis Staphylococcus Lugdunesis 05/03/19 16:43 Foot - Right Gram Stain - Final 05/03/19 16:43 Foot - Right Wound Culture - Final Enterococcus Faecalis Staphylococcus Lugdunesis Laboratory WBC 8.4 X10^3/uL (3.6-10.0) 05/10/19 06:00 RBC 2.59 X10^6/uL (3.5-5.4) L 05/10/19 06:00 Hgb 7.4 g/dL (12.0-16.0) L 05/10/19 06:00 Hct 22.5 % (36.0-47.0) L 05/10/19 06:00 MCV 86.8 fL (80.0-100.0) 05/10/19 06:00 MCH 28.6 pg (27.0-34.0) 05/10/19 06:00 MCHC 32.9 g/dL (33.0-35.0) L 05/10/19 06:00 RDW 14.6 % (11.6-16.5) 05/10/19 06:00 Plt Count 160 X10^3/uL (150.0-450.0) 05/10/19 06:00 Plt Count Comment Adequate (ADEQUATE) 05/10/19 06:00 MPV 10.7 fL (7.4-11.0) 05/10/19 06:00 Neut % (Auto) 71.7 % (42.0-75.0) 05/10/19 06:00 Lymph % (Auto) 17.5 % (21.0-51.0) L 05/10/19 06:00 [place] % (Auto) 7.5 % (0.0-13.0) 05/10/19 06:00 Eos % (Auto) 2.6 % (0.9-2.9) 05/10/19 06:00 Baso % (Auto) 0.7 % (0.2-1.0) 05/10/19 06:00 Neut # (Auto) 6.0 x10^3/uL (2.2-4.8) H 05/10/19 06:00 Lymph # (Auto) 1.5 X10^3/uL (1.3-2.9) 05/10/19 06:00 [place] # (Auto) 0.6 x10^3/uL (0.3-0.8) 05/10/19 06:00 Eos # (Auto) 0.2 x10^3/uL (0.0-0.2) 05/10/19 06:00 Baso # (Auto) 0.1 X10^3/uL (0.0-0.1) 05/10/19 06:00 Absolute Nucleated RBC 0.0 /100WBC 05/10/19 06:00 Plt Morphology Comment Normal (NORMAL) 05/10/19 06:00 RBC Morphology Normal (NORMAL) 05/10/19 06:00 ESR 107 MM/HOUR (0-20) H 05/03/19 17:30 Sodium 140 mmol/L (136-145) 05/10/19 06:00 Corrected Sodium TNP 05/10/19 06:00 Potassium 4.6 mmol/L (3.5-5.1) 05/10/19 06:00 Chloride 109 mmol/L (98-107) H 05/10/19 06:00 Carbon Dioxide 26.3 mmol/L (21-32) 05/10/19 06:00 BUN 24 mg/dL (7-18) H 05/10/19 06:00 Creatinine 1.19 mg/dL (0.55-1.02) H 05/10/19 06:00 Est GFR (MDRD) Af Amer 57 (>60) L 05/10/19 06:00 Est GFR (MDRD) Non-Af 47 (>60) L 05/10/19 06:00 Glucose 94 mg/dL (65-99) 05/10/19 06:00 POC Glucose (mg/dL) 109 mg/dL (65-99) H 05/10/19 17:09 Lactic Acid 2.1 mmol/L (0.4-2.0) H 05/03/19 17:30 Calcium 8.5 mg/dL (8.5-10.1) 05/10/19 06:00 Corrected Calcium 9.5 mg/dL (8.5-10.1) 05/10/19 06:00 Magnesium 3.3 mg/dL (1.7-2.9) H 05/04/19 05:03 Iron 20 ug/dL (50-175) L 05/08/19 05:52 Transferrin 87 mg/dL (202-364) L 05/08/19 05:52 Ferritin 520 ng/mL (8-252) H 05/08/19 05:52 Total Bilirubin 0.20 mg/dL (0.2-1.0) 05/10/19 06:00 AST 29 Units/L (15-37) 05/10/19 06:00 ALT 43 Units/L (12-78) 05/10/19 06:00 Alkaline Phosphatase 47 Units/L (46-116) 05/10/19 06:00 Ammonia < 10 umol/L (11-32) L 05/03/19 17:30 Creatine Kinase 193 Units/L (26-192) H 05/04/19 05:03 CK-MB (CK-2) 1.2 ng/mL (0-4.0) 05/04/19 05:03 CK/CKMB % Calc 0.6 % (<4) 05/04/19 05:03 Troponin I < 0.02 ng/mL (0-1.5) 05/04/19 05:03 C-Reactive Protein 63.20 mg/L (0-3.0) H 05/03/19 17:30 B-Natriuretic Peptide 23.7 pg/mL (0-79) 05/04/19 05:03 Total Protein 5.8 g/dL (6.4-8.2) L 05/10/19 06:00 Albumin 2.7 g/dL (3.4-5.0) L 05/10/19 06:00 Globulin 3.1 g/dL (2.5-4.5) 05/10/19 06:00 Albumin/Globulin Ratio 0.9 Ratio (1.1-2.1) L 05/10/19 06:00 Triglycerides 171 mg/dL (0-150) H 05/04/19 05:03 Cholesterol 149 mg/dL (0-200) 05/04/19 05:03 LDL Cholesterol, Calc 88 mg/dL (0-100) 05/04/19 05:03 HDL Cholesterol 27 mg/dL (40-60) L 05/04/19 05:03 Cholesterol/HDL Ratio 5.5 (0.0-5.0) H 05/04/19 05:03 Vitamin B12 1068 pg/mL (193-986) H 05/08/19 05:52 Folate 18.4 ng/mL (>8.6) 05/08/19 05:52 Specimen Type Catherized urine 05/03/19 18:07 Urine Color Yellow (YELLOW) 05/03/19 18:07 Urine Appearance Cloudy (CLEAR) 05/03/19 18:07 Urine pH 5.0 (5.0 - 8.0) 05/03/19 18:07 Ur Specific [place] 1.020 (1.000-1.030) 05/03/19 18:07 Urine Protein 2+ (NEGATIVE) 05/03/19 18:07 Urine Glucose (UA) Negative (NEGATIVE) 05/03/19 18:07 Urine Ketones Negative (NEGATIVE) 05/03/19 18:07 Urine Occult Blood 1+ (NEGATIVE) 05/03/19 18:07 Urine Nitrite Negative (NEGATIVE) 05/03/19 18:07 Urine Bilirubin Negative (NEGATIVE) 05/03/19 18:07 Urine Urobilinogen Normal (NORMAL) 05/03/19 18:07 Ur Leukocyte Esterase Negative (NEGATIVE) 05/03/19 18:07 Urine RBC 0-2 /HPF (0-3) 05/03/19 18:07 Urine WBC None seen /HPF (0-5) 05/03/19 18:07 Ur Squamous Epith Cells Few /HPF (NEGATIVE) 05/03/19 18:07 Amorphous Sediment 2+ /HPF (NEGATIVE) 05/03/19 18:07 Urine Bacteria Negative /HPF (NEGATIVE) 05/03/19 18:07 Granular Casts Few /LPF (NEGATIVE) 05/03/19 18:07 Ur Culture Indicated? No/not indicated 05/03/19 18:07 Stool Description 20g,brown,semisolid 05/07/19 14:35 Stl Occult Blood (IFOB) Positive (NEGATIVE) A 05/07/19 14:35 Vancomycin Trough 22.1 ug/mL (15-20) H* 05/08/19 20:55 Blood Type B NEGATIVE 05/10/19 11:20 Antibody Screen Negative 05/10/19 11:20 Crossmatch See Detail 05/10/19 11:20 - Plan (1) Acute renal failure Status: Acute Qualifiers: Acute renal failure type: unspecified Plan: CONTINUE IV FLUIDS (2) Dehydration Status: Acute Plan: resolved (3) Osteomyelitis of right foot Status: Acute Qualifiers: Osteomyelitis type: unspecified type Plan: evaluated by Dr. Mays, recommended to continue antibiotics, no surgical intervention needed at this time. Wound Cx: Staph lug and E. Faecalis. Currently on Vancomycin and Rocephin. (4) AMS (altered mental status) Status: Acute Qualifiers: Altered mental status type: transient alteration of awareness Qualified Code(s): R40.4 - Transient alteration of awareness Plan: chronic, CT head chronic small vessel disease. Patient mostly non-verbal, does not follow commands, seems to be at baseline. (5) Hyperkalemia Status: Resolved Plan: Resolved (6) Hypernatremia Status: Resolved Plan: Resolved
--- NOTE | 2019-05-10 20:35 | PCM.PROG ---
Progress Note - Progress Note for Day of Date of Exam: 05/07/19 - Subjective Subjective: WAS ADMITTED FOR TREATMENT OF ACUTE RENAL FAILURE, SEVERE DEHYDRATION, HYPERNATREMIA, HYPERKALEMIA, AND OSTEOMYELITIS OF THE RIGHT FOOT. TODAY, SHE IS MORE ALERT, BUT DOES NOT VERBALLY RESPOND. ON EXAMINATION, HEART IS REGULAR IN RATE AND RHYTHM. BILATERAL LUNGS ARE NOTED WITH DIMINISHED LUNG SOUNDS THROUGHOUT. ABDOMEN IS FLAT, SOFT, AND NON-TENDER. HYPOACTIVE BOWEL SOUNDS ARE NOTED. LOWER EXTREMITIES ARE CONTRACTED. THERE IS A WOUND NOTED TO THE RIGHT OUTER ANKLE. WOUND IS APPROXIMATELY THE SIZE OF A QUARTER. SLOUGH COVERING WOUND BED. THE 3RD TO IS ISCHEMIC. HER VITALS THIS MORNING ARE: 98.3-71-14-100%-150/67. LABS WERE OBTAINED. ABNORMAL LAB VALUES INCLUDE THE FOLLOWING: RBC 3.04, HGB 8.0, HCT 23.9, CHLORIDE 108, BUN 42, CREATININE 1.31, GLUCOSE 100, CALCIUM 8.1, AST 48. WOUND AND BLOOD CULTURES ARE PENDING. SHE IS CURRENTLY RECEIVING 1/2NS AT 125ML/HR, IV ROCEPHIN, IV VANCOMYCIN, ALBUMIN, AND HUMULIN R SLIDING SCALE. WE WILL CONTINUE WITH CURRENT PLAN OF CARE TODAY. OTHERWISE, WE WILL FOLLOW UP WITH AM LABS AND CONTINUE TO MONITOR. - Past Medical Family Social History Past Med/Fam/Surg Hx: No changes since H&P Allergies: Allergies latex Allergy (Verified 05/03/19 15:50) - Review of Systems ROS: No change since H&P - Vital Signs and I&O's Vital Signs: Temperature 98.6 F Pulse Rate 72 Respiratory Rate 18 Blood Pressure [Left Arm] 144/65 Blood Pressure 181/83 O2 Sat by Pulse Oximetry 100 Intake and Output: Intake & Output 05/08/19 05/09/19 05/10/19 05/11/19 11:59 11:59 11:59 11:59 Intake Total 4161 / 4161 2027 / 2027 1758 / 1758 300 / 300 Output Total 2200 / 2200 1100 / 1100 1000 / 1000 750 / 750 Balance 1960 928 / 928 758 / 758 -450 / -450 - Physical Exam Oriented: Unable to test Eyes: Normal Ear: Normal Nose: Normal Throat: Normal Respiratory: Diminished Cardiovascular: Murmur, Normal : Normal Auscultation: Bowel Sounds: Normal Tenderness: Normal Skin: Wound (Right foot wound, dry) Musculoskeletal: Right, Foot Psychiatric: Other Mood Description: Calm, Flat Affect: Flat Speech Pattern: Unclear, Delayed - Laboratory and Diagnostics Result Diagrams: 05/10/19 06:00 05/10/19 06:00 Labs: 05/08/19 13:20 Blood Blood Culture - Preliminary 05/08/19 13:10 Blood Blood Culture - Preliminary 05/03/19 17:25 Blood Blood Culture - Final 05/03/19 17:30 Blood Blood Culture - Final 05/03/19 20:00 Ankle - Right Gram Stain - Final 05/03/19 20:00 Ankle - Right Wound Culture - Final Enterococcus Faecalis Staphylococcus Lugdunesis 05/03/19 16:43 Foot - Right Gram Stain - Final 05/03/19 16:43 Foot - Right Wound Culture - Final Enterococcus Faecalis Staphylococcus Lugdunesis Laboratory WBC 8.4 X10^3/uL (3.6-10.0) 05/10/19 06:00 RBC 2.59 X10^6/uL (3.5-5.4) L 05/10/19 06:00 Hgb 7.4 g/dL (12.0-16.0) L 05/10/19 06:00 Hct 22.5 % (36.0-47.0) L 05/10/19 06:00 MCV 86.8 fL (80.0-100.0) 05/10/19 06:00 MCH 28.6 pg (27.0-34.0) 05/10/19 06:00 MCHC 32.9 g/dL (33.0-35.0) L 05/10/19 06:00 RDW 14.6 % (11.6-16.5) 05/10/19 06:00 Plt Count 160 X10^3/uL (150.0-450.0) 05/10/19 06:00 Plt Count Comment Adequate (ADEQUATE) 05/10/19 06:00 MPV 10.7 fL (7.4-11.0) 05/10/19 06:00 Neut % (Auto) 71.7 % (42.0-75.0) 05/10/19 06:00 Lymph % (Auto) 17.5 % (21.0-51.0) L 05/10/19 06:00 [place] % (Auto) 7.5 % (0.0-13.0) 05/10/19 06:00 Eos % (Auto) 2.6 % (0.9-2.9) 05/10/19 06:00 Baso % (Auto) 0.7 % (0.2-1.0) 05/10/19 06:00 Neut # (Auto) 6.0 x10^3/uL (2.2-4.8) H 05/10/19 06:00 Lymph # (Auto) 1.5 X10^3/uL (1.3-2.9) 05/10/19 06:00 [place] # (Auto) 0.6 x10^3/uL (0.3-0.8) 05/10/19 06:00 Eos # (Auto) 0.2 x10^3/uL (0.0-0.2) 05/10/19 06:00 Baso # (Auto) 0.1 X10^3/uL (0.0-0.1) 05/10/19 06:00 Absolute Nucleated RBC 0.0 /100WBC 05/10/19 06:00 Plt Morphology Comment Normal (NORMAL) 05/10/19 06:00 RBC Morphology Normal (NORMAL) 05/10/19 06:00 ESR 107 MM/HOUR (0-20) H 05/03/19 17:30 Sodium 140 mmol/L (136-145) 05/10/19 06:00 Corrected Sodium TNP 05/10/19 06:00 Potassium 4.6 mmol/L (3.5-5.1) 05/10/19 06:00 Chloride 109 mmol/L (98-107) H 05/10/19 06:00 Carbon Dioxide 26.3 mmol/L (21-32) 05/10/19 06:00 BUN 24 mg/dL (7-18) H 05/10/19 06:00 Creatinine 1.19 mg/dL (0.55-1.02) H 05/10/19 06:00 Est GFR (MDRD) Af Amer 57 (>60) L 05/10/19 06:00 Est GFR (MDRD) Non-Af 47 (>60) L 05/10/19 06:00 Glucose 94 mg/dL (65-99) 05/10/19 06:00 POC Glucose (mg/dL) 109 mg/dL (65-99) H 05/10/19 17:09 Lactic Acid 2.1 mmol/L (0.4-2.0) H 05/03/19 17:30 Calcium 8.5 mg/dL (8.5-10.1) 05/10/19 06:00 Corrected Calcium 9.5 mg/dL (8.5-10.1) 05/10/19 06:00 Magnesium 3.3 mg/dL (1.7-2.9) H 05/04/19 05:03 Iron 20 ug/dL (50-175) L 05/08/19 05:52 Transferrin 87 mg/dL (202-364) L 05/08/19 05:52 Ferritin 520 ng/mL (8-252) H 05/08/19 05:52 Total Bilirubin 0.20 mg/dL (0.2-1.0) 05/10/19 06:00 AST 29 Units/L (15-37) 05/10/19 06:00 ALT 43 Units/L (12-78) 05/10/19 06:00 Alkaline Phosphatase 47 Units/L (46-116) 05/10/19 06:00 Ammonia < 10 umol/L (11-32) L 05/03/19 17:30 Creatine Kinase 193 Units/L (26-192) H 05/04/19 05:03 CK-MB (CK-2) 1.2 ng/mL (0-4.0) 05/04/19 05:03 CK/CKMB % Calc 0.6 % (<4) 05/04/19 05:03 Troponin I < 0.02 ng/mL (0-1.5) 05/04/19 05:03 C-Reactive Protein 63.20 mg/L (0-3.0) H 05/03/19 17:30 B-Natriuretic Peptide 23.7 pg/mL (0-79) 05/04/19 05:03 Total Protein 5.8 g/dL (6.4-8.2) L 05/10/19 06:00 Albumin 2.7 g/dL (3.4-5.0) L 05/10/19 06:00 Globulin 3.1 g/dL (2.5-4.5) 05/10/19 06:00 Albumin/Globulin Ratio 0.9 Ratio (1.1-2.1) L 05/10/19 06:00 Triglycerides 171 mg/dL (0-150) H 05/04/19 05:03 Cholesterol 149 mg/dL (0-200) 05/04/19 05:03 LDL Cholesterol, Calc 88 mg/dL (0-100) 05/04/19 05:03 HDL Cholesterol 27 mg/dL (40-60) L 05/04/19 05:03 Cholesterol/HDL Ratio 5.5 (0.0-5.0) H 05/04/19 05:03 Vitamin B12 1068 pg/mL (193-986) H 05/08/19 05:52 Folate 18.4 ng/mL (>8.6) 05/08/19 05:52 Specimen Type Catherized urine 05/03/19 18:07 Urine Color Yellow (YELLOW) 05/03/19 18:07 Urine Appearance Cloudy (CLEAR) 05/03/19 18:07 Urine pH 5.0 (5.0 - 8.0) 05/03/19 18:07 Ur Specific [place] 1.020 (1.000-1.030) 05/03/19 18:07 Urine Protein 2+ (NEGATIVE) 05/03/19 18:07 Urine Glucose (UA) Negative (NEGATIVE) 05/03/19 18:07 Urine Ketones Negative (NEGATIVE) 05/03/19 18:07 Urine Occult Blood 1+ (NEGATIVE) 05/03/19 18:07 Urine Nitrite Negative (NEGATIVE) 05/03/19 18:07 Urine Bilirubin Negative (NEGATIVE) 05/03/19 18:07 Urine Urobilinogen Normal (NORMAL) 05/03/19 18:07 Ur Leukocyte Esterase Negative (NEGATIVE) 05/03/19 18:07 Urine RBC 0-2 /HPF (0-3) 05/03/19 18:07 Urine WBC None seen /HPF (0-5) 05/03/19 18:07 Ur Squamous Epith Cells Few /HPF (NEGATIVE) 05/03/19 18:07 Amorphous Sediment 2+ /HPF (NEGATIVE) 05/03/19 18:07 Urine Bacteria Negative /HPF (NEGATIVE) 05/03/19 18:07 Granular Casts Few /LPF (NEGATIVE) 05/03/19 18:07 Ur Culture Indicated? No/not indicated 05/03/19 18:07 Stool Description 20g,brown,semisolid 05/07/19 14:35 Stl Occult Blood (IFOB) Positive (NEGATIVE) A 05/07/19 14:35 Vancomycin Trough 22.1 ug/mL (15-20) H* 05/08/19 20:55 Blood Type B NEGATIVE 05/10/19 11:20 Antibody Screen Negative 05/10/19 11:20 Crossmatch See Detail 05/10/19 11:20 - Plan (1) Acute renal failure Status: Acute Qualifiers: Acute renal failure type: unspecified Plan: CONTINUE IV FLUIDS (2) Dehydration Status: Acute Plan: resolved (3) Osteomyelitis of right foot Status: Acute Qualifiers: Osteomyelitis type: unspecified type Plan: evaluated by Dr. Mays, recommended to continue antibiotics, no surgical intervention needed at this time. Wound Cx: Staph lug and E. Faecalis. Currently on Vancomycin and Rocephin. (4) AMS (altered mental status) Status: Acute Qualifiers: Altered mental status type: transient alteration of awareness Qualified Code(s): R40.4 - Transient alteration of awareness Plan: chronic, CT head chronic small vessel disease. Patient mostly non-verbal, does not follow commands, seems to be at baseline. (5) Hyperkalemia Status: Resolved Plan: Resolved (6) Hypernatremia Status: Resolved Plan: Resolved
[2019-05-10] MEDS ORDERED: ZESTRIL TAB 20 MG PO ONE (21:21)
--- NOTE | 2019-05-10 21:48 | PCM.PROG ---
Progress Note - Progress Note for Day of Date of Exam: 05/10/19 - Subjective Subjective: WAS ADMITTED FOR TREATMENT OF ACUTE RENAL FAILURE, SEVERE DEHYDRATION, HYPERNATREMIA, HYPERKALEMIA, AND OSTEOMYELITIS OF THE RIGHT FOOT. RENAL FAILURE, HYPERNATREMIA, AND HYPERKALEMIA HAVE RESOLVED. TODAY, SHE IS MORE ALERT, LYING IN BED ON MORNING ROUNDS. ON EXAMINATION, HEART IS REGULAR IN RATE AND RHYTHM. BILATERAL LUNGS ARE NOTED WITH DIMINISHED LUNG SOUNDS THROUGHOUT. ABDOMEN IS FLAT, SOFT, AND NON-TENDER. HYPOACTIVE BOWEL SOUNDS ARE NOTED. LOWER EXTREMITIES ARE CONTRACTED. THERE IS A WOUND NOTED TO THE RIGHT OUTER ANKLE. WOUND IS APPROXIMATELY THE SIZE OF A QUARTER. SLOUGH COVERING WOUND BED. THE 3RD TO IS ISCHEMIC. HER VITALS THIS MORNING ARE: 98.6-71-16-100%-156/68. LABS WERE OBTAINED. ABNORMAL LAB VALUES INCLUDE THE FOLLOWING: RBC 2.59, HGB 7.4, HCT 22.5, CHLORIDE 109, BUN 24, CREATININE 1.19, TOTAL PROTEIN 5.8, ALBUMIN 2.7. WOUND CULTURES REVEALED GROWTH OF ENTEROCOCCUS FAECALIS AND STAPHYLOCOCCUS LUGDUNESIS. SHE IS CURRENTLY RECEIVING NS AT 50ML/HR, IV VANCOMYCIN, ALBUMIN, AND HUMULIN R SLIDING SCALE. TODAY, WE WILL START IV PEPCID, IV PROTONIX, AND TRANSFUSE 2 UNITS PRBC. WE WILL CONSULT GI. OTHERWISE, WE WILL FOLLOW UP WITH AM LABS AND CONTINUE TO MONITOR. - Past Medical Family Social History Past Med/Fam/Surg Hx: No changes since H&P Allergies: Allergies latex Allergy (Verified 05/03/19 15:50) - Review of Systems ROS: No change since H&P - Vital Signs and I&O's Vital Signs: Temperature 98.6 F Pulse Rate 72 Respiratory Rate 18 Blood Pressure [Left Arm] 144/65 Blood Pressure 181/83 O2 Sat by Pulse Oximetry 100 Intake and Output: Intake & Output 05/08/19 05/09/19 05/10/19 05/11/19 11:59 11:59 11:59 11:59 Intake Total 4161 / 4161 2027 1758 / 1758 300 / 300 Output Total 2200 / 2200 1100 / 1100 1000 / 1000 750 / 750 Balance 1960 / 1960 928 / 928 758 / 758 -450 / -450 - Physical Exam Oriented: Unable to test Eyes: Normal Ear: Normal Nose: Normal Throat: Normal Respiratory: Diminished Cardiovascular: Murmur, Normal : Normal Auscultation: Bowel Sounds: Normal Palpation: Normal Tenderness: Normal Skin: Wound (Right foot wound, dry) Musculoskeletal: Right, Foot Psychiatric: Other Mood Description: Calm, Flat Affect: Flat Speech Pattern: Unclear, Delayed - Laboratory and Diagnostics Result Diagrams: 05/10/19 06:00 05/10/19 06:00 Labs: 05/08/19 13:20 Blood Blood Culture - Preliminary 05/08/19 13:10 Blood Blood Culture - Preliminary 05/03/19 17:25 Blood Blood Culture - Final 05/03/19 17:30 Blood Blood Culture - Final 05/03/19 20:00 Ankle - Right Gram Stain - Final 05/03/19 20:00 Ankle - Right Wound Culture - Final Enterococcus Faecalis Staphylococcus Lugdunesis 05/03/19 16:43 Foot - Right Gram Stain - Final 05/03/19 16:43 Foot - Right Wound Culture - Final Enterococcus Faecalis Staphylococcus Lugdunesis Laboratory WBC 8.4 X10^3/uL (3.6-10.0) 05/10/19 06:00 RBC 2.59 X10^6/uL (3.5-5.4) L 05/10/19 06:00 Hgb 7.4 g/dL (12.0-16.0) L 05/10/19 06:00 Hct 22.5 % (36.0-47.0) L 05/10/19 06:00 MCV 86.8 fL (80.0-100.0) 05/10/19 06:00 MCH 28.6 pg (27.0-34.0) 05/10/19 06:00 MCHC 32.9 g/dL (33.0-35.0) L 05/10/19 06:00 RDW 14.6 % (11.6-16.5) 05/10/19 06:00 Plt Count 160 X10^3/uL (150.0-450.0) 05/10/19 06:00 Plt Count Comment Adequate (ADEQUATE) 05/10/19 06:00 MPV 10.7 fL (7.4-11.0) 05/10/19 06:00 Neut % (Auto) 71.7 % (42.0-75.0) 05/10/19 06:00 Lymph % (Auto) 17.5 % (21.0-51.0) L 05/10/19 06:00 [place] % (Auto) 7.5 % (0.0-13.0) 05/10/19 06:00 Eos % (Auto) 2.6 % (0.9-2.9) 05/10/19 06:00 Baso % (Auto) 0.7 % (0.2-1.0) 05/10/19 06:00 Neut # (Auto) 6.0 x10^3/uL (2.2-4.8) H 05/10/19 06:00 Lymph # (Auto) 1.5 X10^3/uL (1.3-2.9) 05/10/19 06:00 [place] # (Auto) 0.6 x10^3/uL (0.3-0.8) 05/10/19 06:00 Eos # (Auto) 0.2 x10^3/uL (0.0-0.2) 05/10/19 06:00 Baso # (Auto) 0.1 X10^3/uL (0.0-0.1) 05/10/19 06:00 Absolute Nucleated RBC 0.0 /100WBC 05/10/19 06:00 Plt Morphology Comment Normal (NORMAL) 05/10/19 06:00 RBC Morphology Normal (NORMAL) 05/10/19 06:00 ESR 107 MM/HOUR (0-20) H 05/03/19 17:30 Sodium 140 mmol/L (136-145) 05/10/19 06:00 Corrected Sodium TNP 05/10/19 06:00 Potassium 4.6 mmol/L (3.5-5.1) 05/10/19 06:00 Chloride 109 mmol/L (98-107) H 05/10/19 06:00 Carbon Dioxide 26.3 mmol/L (21-32) 05/10/19 06:00 BUN 24 mg/dL (7-18) H 05/10/19 06:00 Creatinine 1.19 mg/dL (0.55-1.02) H 05/10/19 06:00 Est GFR (MDRD) Af Amer 57 (>60) L 05/10/19 06:00 Est GFR (MDRD) Non-Af 47 (>60) L 05/10/19 06:00 Glucose 94 mg/dL (65-99) 05/10/19 06:00 POC Glucose (mg/dL) 141 mg/dL (65-99) H 05/10/19 21:30 Lactic Acid 2.1 mmol/L (0.4-2.0) H 05/03/19 17:30 Calcium 8.5 mg/dL (8.5-10.1) 05/10/19 06:00 Corrected Calcium 9.5 mg/dL (8.5-10.1) 05/10/19 06:00 Magnesium 3.3 mg/dL (1.7-2.9) H 05/04/19 05:03 Iron 20 ug/dL (50-175) L 05/08/19 05:52 Transferrin 87 mg/dL (202-364) L 05/08/19 05:52 Ferritin 520 ng/mL (8-252) H 05/08/19 05:52 Total Bilirubin 0.20 mg/dL (0.2-1.0) 05/10/19 06:00 AST 29 Units/L (15-37) 05/10/19 06:00 ALT 43 Units/L (12-78) 05/10/19 06:00 Alkaline Phosphatase 47 Units/L (46-116) 05/10/19 06:00 Ammonia < 10 umol/L (11-32) L 05/03/19 17:30 Creatine Kinase 193 Units/L (26-192) H 05/04/19 05:03 CK-MB (CK-2) 1.2 ng/mL (0-4.0) 05/04/19 05:03 CK/CKMB % Calc 0.6 % (<4) 05/04/19 05:03 Troponin I < 0.02 ng/mL (0-1.5) 05/04/19 05:03 C-Reactive Protein 63.20 mg/L (0-3.0) H 05/03/19 17:30 B-Natriuretic Peptide 23.7 pg/mL (0-79) 05/04/19 05:03 Total Protein 5.8 g/dL (6.4-8.2) L 05/10/19 06:00 Albumin 2.7 g/dL (3.4-5.0) L 05/10/19 06:00 Globulin 3.1 g/dL (2.5-4.5) 05/10/19 06:00 Albumin/Globulin Ratio 0.9 Ratio (1.1-2.1) L 05/10/19 06:00 Triglycerides 171 mg/dL (0-150) H 05/04/19 05:03 Cholesterol 149 mg/dL (0-200) 05/04/19 05:03 LDL Cholesterol, Calc 88 mg/dL (0-100) 05/04/19 05:03 HDL Cholesterol 27 mg/dL (40-60) L 05/04/19 05:03 Cholesterol/HDL Ratio 5.5 (0.0-5.0) H 05/04/19 05:03 Vitamin B12 1068 pg/mL (193-986) H 05/08/19 05:52 Folate 18.4 ng/mL (>8.6) 05/08/19 05:52 Specimen Type Catherized urine 05/03/19 18:07 Urine Color Yellow (YELLOW) 05/03/19 18:07 Urine Appearance Cloudy (CLEAR) 05/03/19 18:07 Urine pH 5.0 (5.0 - 8.0) 05/03/19 18:07 Ur Specific [place] 1.020 (1.000-1.030) 05/03/19 18:07 Urine Protein 2+ (NEGATIVE) 05/03/19 18:07 Urine Glucose (UA) Negative (NEGATIVE) 05/03/19 18:07 Urine Ketones Negative (NEGATIVE) 05/03/19 18:07 Urine Occult Blood 1+ (NEGATIVE) 05/03/19 18:07 Urine Nitrite Negative (NEGATIVE) 05/03/19 18:07 Urine Bilirubin Negative (NEGATIVE) 05/03/19 18:07 Urine Urobilinogen Normal (NORMAL) 05/03/19 18:07 Ur Leukocyte Esterase Negative (NEGATIVE) 05/03/19 18:07 Urine RBC 0-2 /HPF (0-3) 05/03/19 18:07 Urine WBC None seen /HPF (0-5) 05/03/19 18:07 Ur Squamous Epith Cells Few /HPF (NEGATIVE) 05/03/19 18:07 Amorphous Sediment 2+ /HPF (NEGATIVE) 05/03/19 18:07 Urine Bacteria Negative /HPF (NEGATIVE) 05/03/19 18:07 Granular Casts Few /LPF (NEGATIVE) 05/03/19 18:07 Ur Culture Indicated? No/not indicated 05/03/19 18:07 Stool Description 20g,brown,semisolid 05/07/19 14:35 Stl Occult Blood (IFOB) Positive (NEGATIVE) A 05/07/19 14:35 Vancomycin Trough 22.1 ug/mL (15-20) H* 05/08/19 20:55 Blood Type B NEGATIVE 05/10/19 11:20 Antibody Screen Negative 05/10/19 11:20 Crossmatch See Detail 05/10/19 11:20 - Plan (1) Anemia Status: Acute Qualifiers: Anemia type: unspecified type Qualified Code(s): D64.9 - Anemia, unspecified Plan: TRANSFUSE 2 UNITS PRBC, CONSULT GI (2) Acute renal failure Status: Acute Qualifiers: Acute renal failure type: unspecified Plan: CONTINUE IV FLUIDS (3) Dehydration Status: Acute Plan: resolved (4) Osteomyelitis of right foot Status: Acute Qualifiers: Osteomyelitis type: unspecified type Plan: evaluated by Dr. Mays, recommended to continue antibiotics, no surgical intervention needed at this time. Wound Cx: Staph lug and E. Faecalis. Currently on Vancomycin and Rocephin. (5) AMS (altered mental status) Status: Acute Qualifiers: Altered mental status type: transient alteration of awareness Qualified Code(s): R40.4 - Transient alteration of awareness Plan: chronic, CT head chronic small vessel disease. Patient mostly non-verbal, does not follow commands, seems to be at baseline. (6) Hyperkalemia Status: Resolved Plan: Resolved (7) Hypernatremia Status: Resolved Plan: Resolved
[2019-05-10] MEDS: COREG TAB 25 MG PO SCH (21:54)
[2019-05-10] MEDS: VANCOMYCIN HCL 750 MG in D5W 250 ML IV 250 ML IV SCH (21:59)
[2019-05-10 22:21] LABS: HEMATOCRIT 27.7 % (36.0-47.0); HEMOGLOBIN 9.3 g/dL (12.0-16.0)
[2019-05-11] MEDS ORDERED: NS 250 ML IV 250 ML IV ONE (00:20)
[2019-05-11 07:00] LABS: BASOPHILS # (AUTO) 0.1 X10^3/uL (0.0-0.1); BASOPHILS % (AUTO) 0.8 % (0.2-1.0); EOSINOPHILS # (AUTO) 0.2 x10^3/uL (0.0-0.2); EOSINOPHILS % (AUTO) 2.8 % (0.9-2.9); HEMATOCRIT 33.3 % (36.0-47.0); HEMOGLOBIN 11.1 g/dL (12.0-16.0); LYMPHOCYTES # (AUTO) 1.3 X10^3/uL (1.3-2.9); LYMPHOCYTES % (AUTO) 16.2 % (21.0-51.0); MEAN CORPUSCULAR HEMOGLOBIN 29.1 pg (27.0-34.0); MEAN CORPUSCULAR HGB CONC 33.3 g/dL (33.0-35.0); MEAN CORPUSCULAR VOLUME 87.2 fL (80.0-100.0); MEAN PLATELET VOLUME 10.8 fL (7.4-11.0); MONOCYTES # (AUTO) 0.8 x10^3/uL (0.3-0.8); MONOCYTES % (AUTO) 9.4 % (0.0-13.0); NEUTROPHILS # (AUTO) 5.7 x10^3/uL (2.2-4.8); NEUTROPHILS % (AUTO) 70.8 % (42.0-75.0); PLATELET COUNT 187 X10^3/uL (150.0-450.0); RED BLOOD COUNT 3.81 X10^6/uL (3.5-5.4); RED CELL DISTRIBUTION WIDTH 15.1 % (11.6-16.5)
[2019-05-11 07:22] LABS: ALBUMIN 2.9 g/dL (3.4-5.0); CALCIUM 8.6 mg/dL (8.5-10.1); CARBON DIOXIDE 25.3 mmol/L (21-32); COR CA(FOR HYPOALB) 9.5 mg/dL (8.5-10.1); CREATININE 1.31 mg/dL (0.55-1.02); TOTAL PROTEIN 6.1 g/dL (6.4-8.2)
[2019-05-11] MEDS: FERROUS GLUCONATE PO SCH ×2 (09:57→17:02)
[2019-05-11] MEDS: PROTONIX INJ 40 MG VIAL IVP SCH (09:58)
[2019-05-11] MEDS: PEPCID 20 MG IV PREMIX* 20 MG/50 ML BAG IV SCH (10:00)
[2019-05-11] MEDS: ALBUMIN HUMAN 25%- 100 ML 100 ML IV SCH (10:02)
[2019-05-11] MEDS: NS 1000 ML 1,000 ML IV SCH ×2 (10:03→15:56)
[2019-05-11] MEDS: COREG TAB 25 MG PO SCH (10:04)
[2019-05-11] MEDS: LOVENOX INJ 30 MG SYR SC SCH (10:07)
[2019-05-11 18:03] VITALS: BP 168/76
[2019-05-12] MEDS ORDERED: PEPCID 20 MG IV PREMIX* 20 MG/50 ML BAG IV SCH (09:00)
[2019-05-12] MEDS ORDERED: PHARMACY COMMENT IV NR (20:30)
== END 2019-05-11 18:10 | disposition hospice, home (50) | DRG 683 ==
LOC: ER 15:35 → ICU 18:59
PROVIDERS: ADMIT Family Medicine; ATTEND Internal Medicine
DX: N17.8 Other acute kidney failure; R40.4 Transient alteration of awareness; G30.8 Other Alzheimer's disease; E87.0 Hyperosmolality and hypernatremia; F02.80 Dementia in other diseases classified elsewhere, unspecified severity, without behavioral disturbance, psychotic disturbance, mood disturbance, and anxiety; D64.89 Other specified anemias; E11.65 Type 2 diabetes mellitus with hyperglycemia; L89.512 Pressure ulcer of right ankle, stage 2; B95.2 Enterococcus as the cause of diseases classified elsewhere; M86.8X7 Other osteomyelitis, ankle and foot; R60.0 Localized edema; E78.2 Mixed hyperlipidemia; R79.82 Elevated C-reactive protein (CRP); L98.499 Non-pressure chronic ulcer of skin of other sites with unspecified severity; R94.31 Abnormal electrocardiogram [ECG] [EKG]; E86.0 Dehydration; E87.5 Hyperkalemia; B95.7 Other staphylococcus as the cause of diseases classified elsewhere
CPT/HCPCS: 36415; 36430; 51702; 70450; 71010; 71045; 73630; 74000; 74018; 80053; 80061; 80202; 81001; 82140; 82270; 82550; 82553; 82565; 82607; 82728; 82746; 83540; 83605; 83735; 83880; 84466; 84484; 85014; 85018; 85025; 85652; 86140; 86850; 86900; 86901; 86922; 87040; 87070; 87075; 87077; 87186; 87205; 93005; 93306; 96365; 96374; 99285; A4222; C9113; P9016; P9047; S0028; J0696; J1200; J1650; J1815; J3370; J3490; J7030; J7040; J7050; J7060